=== PATIENT | male | born 1940 | race Caucasian/White ===

== ENCOUNTER 2020-02-16 08:30 | Emergency (ER) | payer OTHER, SELFPAY ==
--- NOTE | ~2020-02-16 | XR_ITS ---
EXAMINATION: XR ankle LT min 3V EXAM DATE: 02/16/2020 08:54 INDICATION: Initial encounter following injury, with pain of the left ankle. TECHNIQUE: Left ankle frontal, lateral and oblique projections obtained and reviewed. There is no pr ior study for comparison. FINDINGS: There is acute closed posttraumatic oblique fracture through the left radial distal metaphy sis extending into the superolateral aspect of the mortise, however the mortise relationship does debora ear maintained. Recommend orthopedic consult. There is overlying soft tissue swelling. Moderate size inferior calcaneal spur. IMPRESSION: Left distal fibular metaphyseal acute oblique fracture into mortise; orthopedic consult. Reviewed, dictated and finalized at location A. ING DIRECTOR IMPRESSION: Left distal fibular metaphyseal acute oblique fracture into mortis e; orthopedic consult.
[2020-02-16 08:38] VITALS: BP 156/82; PULSE 71; RESP 18; TEMP 36.3; O2SAT 100
--- NOTE | 2020-02-16 09:18 | ED.LOWEXIN ---
HPI - Extremity Injury (Lower) General Chief Complaint: Extremity Injury, Lower Stated Complaint: sprain ankle Time Seen by Provider: 02/16/20 09:07 Source: patient and old records reviewed Mode of arrival: ambulatory Limitations: no limitations History of Present Illness HPI Narrative: Patient presents today complaining of a left ankle injury. He rolled it yesterday on amount of frozen dirt. She is complaining of pain to the lateral ankle. Denies numbness or tingling in the leg or foot. He has been ambulatory since the injury. Currently rates his pain 2/10 and has been applying ice and taking Tylenol with some relief. MD complaint: ankle injury Related Data Home Medications Medication Instructions Recorded Confirmed multivitamin 1 tablet PO DAILY 09/18/19 02/16/20 Allergies Allergy/AdvReac Type Severity Reaction Status Date / Time shellfish derived Allergy Unknown Skin Verified 02/16/20 08:36 Reaction SHELL FISH Allergy Unknown HIVES Uncoded 02/16/20 08:36 Review of Systems Review of Systems: Narrative: CONSTITUTIONAL: Denies body aches, fever, chills, or sweats. EYES: Denies visual changes, redness, or discharge. ENT: Denies rhinorrhea, congestion, sore throat, or otalgia. CARDIOVASCULAR: Denies chest pain, palpitations, or edema. RESPIRATORY: Denies cough or dyspnea. GASTROINTESTINAL: Denies abdominal pain, nausea, vomiting, or diarrhea. GENITOURINARY: Denies dysuria or hematuria. SKIN: Denies rash, itching, or wounds. MUSCULOSKELETAL: Denies back pain, or myalgia. + Left ankle injury NEUROLOGIC: Denies headache, numbness, tingling, or weakness. PSYCH: Denies depression or anxiety. [facility] Past Medical History Medical History BPH associated with nocturia Combined hyperlipidemia History of elevated PSA Family History Family History Mother Family history of cardiovascular disease, Onset Age: 80 Cerebrovascular accident, Onset Age: 80 Social History Social History Smoking status: Never smoker Second hand tobacco smoke exposure: No Alcohol intake: current Comments At time of signature, I have reviewed and agree with nursing past medical, surgical, social and family history unless otherwise noted. Please see nursing chart for further information. There is no relevant family history pertinent to the presenting complaint Exam Narrative: Exam Narrative: GENERAL: Well-appearing, well-nourished, and in no acute distress. HEAD: Normocephalic, atraumatic. EYES: EOMI. No redness or drainage. Conjunctivae normal. ENT: Mucous membranes pink and moist. NECK: Normal AROM. CHEST: No respiratory distress. EXTREMITIES: Left ankle: No bony tenderness to posterior or medial ankle. Bony tenderness to the lateral malleolus. No bony tenderness to the foot. Mild to moderate edema to the lateral ankle. Distal sensation intact. Capillary refill normal. Pedal pulse strong. Full range of motion of ankle and all toes. Some increased pain with range of motion of the ankle. SKIN: Warm, dry, no rash. Capillary refill normal. Normal skin turgor. NEURO: No focal deficits. Alert and oriented x3. Gait steady. PSYCH: Normal affect. No signs of depression or anxiety. Course Vital Signs Vital signs: Vital Signs Temperature 97.3 F L 02/16/20 08:38 Pulse Rate 71 02/16/20 08:38 Respiratory Rate 18 02/16/20 08:38 Blood Pressure 156/82 H 02/16/20 08:38 Pulse Oximetry 100 02/16/20 08:38 Temperature 97.3 F L 02/16/20 08:38 Pulse Rate 71 02/16/20 08:38 Respiratory Rate 18 02/16/20 08:38 Blood Pressure 156/82 H 02/16/20 08:38 Pulse Oximetry 100 02/16/20 08:38 Reviewed. Pt has been instructed to follow up with his PCP regarding his elevated blood pressure today. Procedures Orthopedic Splinting/Ca
== END 2020-02-16 10:01 | disposition home or self-care (01) ==
PROVIDERS: Emergency Provider Nurse Practitioner; PCP Family Medicine
DX: S82.832A Other fracture of upper and lower end of left fibula, initial encounter for closed fracture (principal); X50.9XXA Other and unspecified overexertion or strenuous movements or postures, initial encounter; E78.2 Mixed hyperlipidemia
CPT/HCPCS: 29515; 73610; 99214; G0463

== ENCOUNTER 2020-09-23 14:32 | Outpatient (CLI) | payer OTHER, SELFPAY ==
--- NOTE | ~2020-09-23 | US_ITS ---
EXAMINATION: US soft tissue head and neck DATE: 09/23/2020 14:59 INDICATION: Right neck lump. TECHNIQUE: Multiple grayscale and Doppler ultrasound images of the neck were obtained. COMPARISON: None FINDINGS: There is a 17 mm calcified mass in the right submandibular gland. IMPRESSION: 1. 17 mm calcified mass in the right submandibular gland, likely a sialolith. Consider neck CT with c ontrast. Reviewed, dictated and finalized at location A. IMPRESSION: 1. 17 mm calcified mass in the right submandibular gland, likely a sialolith. C onsider neck CT with contrast.
== END 2020-09-23 14:33 | disposition home or self-care (01) ==
PROVIDERS: PCP Family Medicine; Visit Provider Nurse Practitioner
DX: R22.1 Localized swelling, mass and lump, neck (principal)
CPT/HCPCS: 76536

== ENCOUNTER 2021-03-18 11:28 | Emergency (ER) | payer OTHER, SELFPAY ==
--- NOTE | 2021-03-18 11:34 | ED.WOUNDLAC ---
HPI - Wound/Laceration General Chief Complaint: Skin/Abscess/Foreign Body Stated Complaint: Laceration on head Time Seen by Provider: 03/18/21 11:35 Source: patient, RN notes reviewed and old records reviewed Mode of arrival: ambulatory Limitations: no limitations History of Present Illness HPI narrative: 80-year-old male presents to the [facility] with complaints of a laceration, bleeding controlled to the posterior scalp. Patient states he was walking on a trail when he slipped on ice and fell hitting his head. Denies loss of consciousness. No blurry vision change in vision. Denies any chest pain. Denies headaches. Denies vomiting. Denies being on blood thinners Last Tdap current medical record was August 2015 Place: outdoors Related Data Home Medications Medication Instructions Recorded Confirmed multivitamin 1 tablet PO DAILY 09/18/19 09/28/20 Allergies Allergy/AdvReac Type Severity Reaction Status Date / Time shellfish derived Allergy Unknown Skin Verified 09/28/20 11:02 Reaction SHELL FISH Allergy Unknown HIVES Uncoded 09/28/20 11:02 Review of Systems Review of Systems: All systems reviewed & are unremarkable except as noted in HPI and below Constitutional: Constitutional: Reports no additional constitutional complaints, Denies chills and Denies fever(s) Eyes: Eyes: Reports no additional eye complaints ENT: Reports system reviewed and no additional complaints, except as documented Cardiovascular: Cardiovascular: Reports no additional cardiovascular complaints, Denies chest pain and Denies dyspnea Respiratory: Respiratory: Reports no additional respiratory complaints, Denies cough and Denies dyspnea Gastrointestinal: Gastrointestinal: Reports no additional gastrointestinal complaints, Denies abdominal pain, Denies nausea and Denies vomiting Musculoskeletal: Musculoskeletal: Reports no additional musculoskeletal complaints Integumentary/Breasts: Skin/Breast: Reports as per HPI Comments: cut to back of head Neurologic: Reports system reviewed and no additional complaints, except as documented, Denies confusion, Denies vertigo, Denies dizziness, Denies syncope, Denies headache(s), Denies focal weakness, Denies numbness and Denies weakness Psychiatric: Psychiatric: Reports no additional psychiatric complaints Allergic/Immunologic: Allergic/Immunologic: Reports no additional allergic/immunologic complaints PMFSH Past Medical History Medical History BPH associated with nocturia Closed left fibular fracture Combined hyperlipidemia History of elevated PSA Strain of muscle of right hip Family History Family History Mother Family history of cardiovascular disease, Onset Age: 80 Cerebrovascular accident, Onset Age: 80 Social History Social History Smoking status: Never smoker Second hand tobacco smoke exposure: No Alcohol intake: current Substance use: never Substance use type: does not use Comments At the time of my signature, I reviewed and agree with the nursing past medical, surgical, social, and family history. There is no relevant family history pertinent to the patient complaint. Exam Const: General: healthy appearing, no acute distress and alert Nutritional Appearance: well nourished Orientation/consciousness: patient oriented x3 Limitations: no limitations HENMT: Head: normal to inspection, abrasion right occipital, hematoma right occipital, no lacerations, no occipital foramen tenderness, no raccoon eyes, no scalp lesions and no scalp tenderness Head images: 1. 1 cm diameter abrasion, bleeding controlled Ears: external ears normal General nose exam: Normal external nose present and Normal nares present Face and sinus: normal facial exam Mouth: Yes Normal oral and palatal mucosa present Teeth and gingiva: den
[2021-03-18 11:41] VITALS: BP 164/105; PULSE 85; RESP 18; TEMP 36.3; O2SAT 97
--- NOTE | 2021-03-18 11:50 | PC.NURSE ---
wound cleansed. small break in skin noted surrounded by abrasion/swelling. no bleeding
[2021-03-18] MEDS: TETANUS,DIPHTHERIA,AC PERTUSSIS ADULT (0.5 ML) BOOSTRIX IM (12:08)
== END 2021-03-18 12:23 | disposition home or self-care (01) ==
PROVIDERS: Emergency Provider Nurse Practitioner; PCP Family Medicine
DX: S00.01XA Abrasion of scalp, initial encounter (principal); W00.0XXA Fall on same level due to ice and snow, initial encounter; Z23 Encounter for immunization
CPT/HCPCS: 90471; 90715; 99212; G0463

== ENCOUNTER 2021-10-24 11:14 | Emergency (ER) | payer OTHER, SELFPAY ==
[2021-10-24 11:24] VITALS: BP 141/86; PULSE 94; RESP 18; TEMP 36.8; O2SAT 96
--- NOTE | 2021-10-24 11:25 | ED.SKABFB ---
HPI - Skin/Abscess/Foreign Bdy General Chief complaint: Skin/Abscess/Foreign Body Stated complaint: Lump on Abdomen Time Seen by Provider: 10/24/21 11:25 Source: patient, RN notes reviewed and old records reviewed Mode of arrival: ambulatory Limitations: no limitations History of Present Illness HPI narrative: 80-year-old male presents to the [facility] with his with complaints of a lump approximately 2 cm above umbilicus that he noticed this morning. No redness noted. Unable to visualize anything externally. On palpation able to palpate a small firm area, approximately 2 cm in diameter. Related Data Home Medications Medication Instructions Recorded Confirmed multivitamin 1 tablet PO DAILY 09/18/19 10/24/21 Allergies Allergy/AdvReac Type Severity Reaction Status Date / Time shellfish derived Allergy Unknown Skin Verified 10/24/21 11:18 Reaction SHELL FISH Allergy Unknown HIVES Uncoded 10/24/21 11:18 Review of Systems Review of Systems: All systems reviewed & are unremarkable except as noted in HPI and below Constitutional: Constitutional: Reports no additional constitutional complaints, Denies chills and Denies fever(s) Eyes: Eyes: Reports no additional eye complaints ENT: Reports system reviewed and no additional complaints, except as documented Cardiovascular: Cardiovascular: Reports no additional cardiovascular complaints Respiratory: Respiratory: Reports no additional respiratory complaints Gastrointestinal: Gastrointestinal: Reports as per HPI Comments: Lump 2 cm above umbilicus internal. Musculoskeletal: Musculoskeletal: Reports no additional musculoskeletal complaints Integumentary/Breasts: Skin/Breast: Reports system reviewed and no additional complaints, except as docu Neurologic: Reports system reviewed and no additional complaints, except as documented Psychiatric: Psychiatric: Reports no additional psychiatric complaints Allergic/Immunologic: Allergic/Immunologic: Reports no additional allergic/immunologic complaints [facility] Past Medical History Medical History BPH associated with nocturia Closed left fibular fracture Combined hyperlipidemia History of elevated PSA Strain of muscle of right hip Family History Family History Mother Family history of cardiovascular disease, Onset Age: 80 Cerebrovascular accident, Onset Age: 80 Social History Social History Social History: Caffeine- 2 cups coffee daily Smoking status: Never smoker Second hand tobacco smoke exposure: No Alcohol intake: current Drinks per week: 2 Alcohol use details: wine Substance use: never Substance use type: does not use Comments At the time of my signature, I reviewed and agree with the nursing past medical, surgical, social, and family history. There is no relevant family history pertinent to the patient complaint. Exam Const: General: healthy appearing, no acute distress and alert Nutritional Appearance: well nourished Orientation/consciousness: patient oriented x3 Limitations: no limitations HENMT: Head: normal to inspection Ears: external ears normal Eyes: General: appearance normal, both eyes and all related structures Pupils: Equal, round and reactive pupils present Neck: Neck: normal visual inspection, no lymphadenopathy and no meningeal signs Chest: Chest palpation & inspection: normal inspection of the chest Resp: Effort & Inspection: normal respiratory effort and no use of accessory muscles Auscultation: clear to auscultation bilaterally, no crackles, no rales, no rhonchi and no wheezes Cardio: Rate: regular rate Rhythm: regular rhythm GI: GI Palp: Yes Soft to palpation and No Tenderness to palpation present (GI) Other: 2 cm above umbilicus, firm area noted. Patient is nontender. No fl
== END 2021-10-24 11:40 | disposition home or self-care (01) ==
PROVIDERS: Emergency Provider Nurse Practitioner; PCP Family Medicine
DX: R19.05 Periumbilic swelling, mass or lump (principal)
CPT/HCPCS: 99211; G0463

== ENCOUNTER 2021-11-05 07:45 | Outpatient (CLI) | payer OTHER, SELFPAY ==
--- NOTE | ~2021-11-05 | US_ITS ---
EXAMINATION: US soft tissue abdomen DATE: 11/05/2021 08:58 INDICATION: Intra-abdominal and pelvic swelling, mass, and lump. TECHNIQUE: Multiple grayscale and Doppler ultrasound images of the abdomen were obtained. COMPARISON: None FINDINGS: In the periumbilical abdominal wall, there is a ventral hernia containing fat. IMPRESSION: 1. Ventral hernia containing fat. Reviewed, dictated and finalized at location A.
== END 2021-11-05 07:46 | disposition home or self-care (01) ==
PROVIDERS: PCP Family Medicine; Visit Provider Nurse Practitioner Family
DX: R19.00 Intra-abdominal and pelvic swelling, mass and lump, unspecified site (principal); K43.9 Ventral hernia without obstruction or gangrene
CPT/HCPCS: 76705

== ENCOUNTER 2022-01-13 17:52 | Emergency (ER) | payer OTHER, SELFPAY ==
--- NOTE | ~2022-01-13 | XR_ITS ---
EXAMINATION: XR hip RT 2V w AP pelvis DATE: 01/13/2022 19:22 INDICATION: Right posterior hip pain post fall TECHNIQUE: Anteroposterior view of the pelvis and anteroposterior and frog-leg lateral views of the r ight hip were obtained. COMPARISON: None. FINDINGS: Alignment is normal. No fracture. Mild bilateral hip and sacroiliac osteoarthritis. Moderate lower dar mbar spondylosis. Soft tissues are unremarkable. IMPRESSION: 1. Mild bilateral hip and sacroiliac osteoarthritis. No acute osseous abnormality. Reviewed, dictated and finalized at location A. 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 Mild bilateral hip and sacroiliac osteoarthritis. No acute osseous abnormali ty.
--- NOTE | ~2022-01-13 | CT_ITS ---
EXAMINATION: CT brain wo con DATE: 01/13/2022 19:16 INDICATION: Injury TECHNIQUE: Computed tomography (CT) of the head was performed without intravenous contrast. Sagittal and coronal reconstructions were performed. The mA was adjusted according to patient size. Iterative reconstruction technique was employed. The dose-length product was 605.33 mGy-cm. COMPARISON: None FINDINGS: No fracture. No acute intracranial hemorrhage, acute infarction or abnormal extra axial fluid collect ion. Mild age-appropriate diffuse volume loss. Ventricles are normal and symmetric. No mass/mass effe ct. Changes of bilateral intraocular lens replacement. The orbits, paranasal sinuses and mastoid air cells are normal. IMPRESSION: 1. No fracture or acute intracranial process. Reviewed, dictated and finalized at location A. 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
[2022-01-13 17:55] VITALS: BP 167/88; PULSE 87; RESP 16; TEMP 36.9; O2SAT 97
[2022-01-13 18:43] VITALS: O2SAT 97
[2022-01-13 18:45] VITALS: O2SAT 97
[2022-01-13 18:46] VITALS: BP 150/80; O2SAT 97
--- NOTE | 2022-01-13 19:04 | ED.FALL ---
HPI - Fall General Chief Complaint: Fall Stated Complaint: FALL/LOSS OF TIME Time Seen by Provider: 01/13/22 18:29 History of Present Illness HPI Narrative: Patient is a 81-year-old male who presents to the ER after falling down 7 steps. He is unsure if he struck his head but checked on him after he fell and he could not remember carving the turkey for Thanksgiving or other activities during the day. Shortly later he was able to regain his memory. He has no headache or change in vision at this time. He is not on any blood thinners. He has mild pain in his right hip but has been able to ambulate. Related Data Home Medications Medication Instructions Recorded Confirmed multivitamin 1 tablet PO DAILY 09/18/19 11/02/21 Allergies Allergy/AdvReac Type Severity Reaction Status Date / Time shellfish derived Allergy Unknown Skin Verified 11/02/21 09:04 Reaction SHELL FISH Allergy Unknown HIVES Uncoded 11/02/21 09:04 Review of Systems Review of Systems: All systems reviewed & are unremarkable except as noted in HPI and below Constitutional: Constitutional: Denies chills, Denies fatigue and Denies fever(s) ENT: Denies nasal congestion and Denies sore throat Cardiovascular: Cardiovascular: Denies chest pain, Denies rapid heart rate and Denies radiating jaw, neck or arm pain Respiratory: Respiratory: Denies cough and Denies dyspnea Musculoskeletal: Musculoskeletal: Denies back pain, Reports arthralgias and Denies joint swelling Integumentary/Breasts: Comments: Abrasions to the back. Neurologic: Reports syncope, Denies headache(s), Denies focal weakness and Denies numbness PMF Past Medical History Medical History (Updated 01/13/22 @ 19:46 by Yusef Gerber MD) BPH associated with nocturia Closed left fibular fracture Combined hyperlipidemia History of elevated PSA Strain of muscle of right hip Ventral hernia (~09/2021) fat containing Family History Family History Mother Family history of cardiovascular disease, Onset Age: 80 Cerebrovascular accident, Onset Age: 80 Social History Social History (Updated 11/02/21 @ 09:06 by Suri Hampton MA) Social History: Caffeine- 2 cups coffee daily Smoking status: Never smoker Second hand tobacco smoke exposure: No Alcohol intake: current Drinks per week: 2 Alcohol use details: wine Substance use: never Substance use type: does not use Gender identity (if verbalized by the patient): Male Sexual Orientation (if Verbalized by the Patient): Straight or Heterosexual Agree to blood products: Yes Exam Narrative: GENERAL: Well-appearing, well-nourished, and in no acute distress. HEAD: Normocephalic, atraumatic. EYES: PERRL and EOMI. ENT: Mucous membranes moist. NECK: Supple. No midline tenderness of cervical spine with normal range of motion. CHEST: Clear to auscultation. No respiratory distress. HEART: Regular rate and rhythm. Normal peripheral pulses. ABDOMEN: Soft, nontender, nondistended. Back: No midline tenderness of T/L-spine. No reproducible paraspinal muscular tenderness. There is some abrasions to the back bilaterally over lower thoracic wall. EXTREMITIES: Normal range of motion. No edema. SKIN: Warm, dry, no rash. NEURO: Alert and oriented x3. No focal deficits. Course Course Emergency Course: Patient informed of results. Discharge home. Vital Signs Vital signs: Vital Signs Temperature 98.5 F 01/13/22 17:55 Pulse Rate 87 01/13/22 17:55 Respiratory Rate 16 01/13/22 17:55 Blood Pressure 167/88 H 01/13/22 17:55 Pulse Oximetry 97 01/13/22 17:55 Oxygen Delivery Room Air 01/13/22 17:55 Temperature 98.5 F 01/13/22 17:55 Pulse Rate 87 01/13/22 17:55 Respiratory Rate 16 01/13/22 17:55 Blood Pressure 167/88 H 01/13/22 17:55 Pulse Oximetry 97 01/13/22 17:55 Oxygen Delivery Room Air 01/13/22 17:55
[2022-01-13 19:22] VITALS: O2SAT 99
[2022-01-13 19:30] VITALS: O2SAT 97
== END 2022-01-13 20:01 | disposition home or self-care (01) ==
PROVIDERS: Emergency Provider Emergency Medicine; PCP Family Medicine
DX: S06.0XAA Concussion with loss of consciousness status unknown, initial encounter (principal); N40.1 Benign prostatic hyperplasia with lower urinary tract symptoms; R35.1 Nocturia; E78.2 Mixed hyperlipidemia; M16.0 Bilateral primary osteoarthritis of hip; M46.1 Sacroiliitis, not elsewhere classified; W10.9XXA Fall (on) (from) unspecified stairs and steps, initial encounter
CPT/HCPCS: 70450; 73502; 99284

== ENCOUNTER 2022-08-16 12:57 | Emergency (ER) | payer OTHER, SELFPAY ==
[2022-08-16 13:06] VITALS: BP 159/79; PULSE 58; RESP 16; TEMP 36; O2SAT 99
[2022-08-16 13:08] VITALS: BP 159/79; PULSE 58; RESP 16; TEMP 36; O2SAT 99
--- NOTE | 2022-08-16 13:27 | ED.EAR ---
HPI - Ear Problem General Chief complaint: Ear Stated complaint: Left Ear Irritation Time Seen by Provider: 08/16/22 13:15 Source: patient, family, RN notes reviewed and old records reviewed Mode of arrival: ambulatory Limitations: no limitations History of Present Illness HPI Narrative: 81 year old male accompanied by presents to express care with complaints of decreased hearing to his left ear, feelings of nausea and some dizziness with changes of position starting this morning. Patient denies any vomiting, diarrhea or any known fevers. Patient reports no discharge from his ears reports irritation to left ear especially with decrease in his hearing to his left ear. Patient does reports history of sinus problems and some seasonal allergies, denies any cough or any sinus pressure at this time. MD Complaint: decreased hearing and other (ear irritation) Location: left ear Discharge from ear: Reports no Associated symptoms ear: other (loss of hearing, feeling dizzy,nausea) Treatment prior to arrival: none Related Data Home Medications Medication Instructions Recorded Confirmed multivitamin 1 tablet PO DAILY 09/18/19 05/16/22 Allergies Allergy/AdvReac Type Severity Reaction Status Date / Time shellfish derived Allergy Unknown Skin Verified 08/16/22 13:08 Reaction SHELL FISH Allergy Unknown HIVES Uncoded 08/16/22 13:08 Review of Systems Review of Systems: CONSTITUTIONAL: Denies fever, chills, or sweats. EYES: Denies visual changes, redness, or discharge.with decreased hearing verbalized. ENT: Denies rhinorrhea, congestion, sore throat,reports left ear irritation and decreased hearing. CARDIOVASCULAR: Denies chest pain, palpitations, or edema. RESPIRATORY: Denies cough or dyspnea. GASTROINTESTINAL: Denies abdominal pain, reports some nausea, no vomiting, or diarrhea. GENITOURINARY: Denies dysuria or hematuria. SKIN: Denies rash or itching. MUSCULOSKELETAL: Denies back pain, joint pain, or myalgia. NEUROLOGIC: Denies headache, numbness, or weakness, reports some dizziness with position changes PSYCHIATRIC: Denies anxiety or depression. All systems reviewed & are unremarkable except as noted in HPI and below PMFSH Past Medical History Medical History BPH associated with nocturia Closed left fibular fracture Combined hyperlipidemia History of elevated PSA Strain of muscle of right hip Ventral hernia (~09/2021) fat containing Family History Family History Mother Family history of cardiovascular disease, Onset Age: 80 Cerebrovascular accident, Onset Age: 80 Social History Social History Social History: Caffeine- 2 cups coffee daily Smoking status: Never smoker Second hand tobacco smoke exposure: No Alcohol intake: current Drinks per week: 2 Alcohol use details: wine Substance use: never Substance use type: does not use Lack of Transportation: No Lack of Food: Never True Current Housing: I Have Housing Concerned About Future Housing: No Difficulty Paying Gas/Electric Bills: No Difficulty Paying for Meds: No Currently Unemployed: No Education: Master's Degree or Higher Difficulty w/ Childcare or Family Care: No Living arrangements: with family Occupation/Education: retired Gender identity (if verbalized by the patient): Male Sexual Orientation (if Verbalized by the Patient): Straight or Heterosexual Agree to blood products: Yes Comments At time of signature, agree with nursing past medical, surgical, social and family history. There is no relevant family history pertinent to the presenting complaint Exam Narrative: GENERAL: Well-appearing, well-nourished, and in no acute distress. HEAD: Normocephalic, atraumatic. EYES: PERRLA and EOMI. ENT: Nares clear,clear rhinorrhea no e
== END 2022-08-16 13:47 | disposition home or self-care (01) ==
PROVIDERS: Emergency Provider Registered Nurse; PCP Family Medicine
DX: H61.23 Impacted cerumen, bilateral (principal); H60.503 Unspecified acute noninfective otitis externa, bilateral; E78.2 Mixed hyperlipidemia
CPT/HCPCS: 69209; 99212; A9270; G0463

== ENCOUNTER 2023-08-09 12:51 | Emergency (ER) | payer OTHER, SELFPAY ==
[2023-08-09 13:05] VITALS: BP 142/70; PULSE 73; RESP 16; TEMP 36.6; O2SAT 99
--- NOTE | 2023-08-09 13:06 | ED.DENTAL ---
HPI - Dental/Oral General Chief complaint: Dental/Oral Stated complaint: saliva gland issue right side Time Seen by Provider: 08/09/23 13:06 Source: patient Mode of arrival: ambulatory Limitations: no limitations History of Present Illness HPI Narrative: 82-year-old male presents stating he has had enlarged summary gland to his right neck for 4 years. States he was seen ENT in the past and was told it was a crystallized salivary gland. Over the past week has had increasing pain and enlargement. Had doctor's appointment today but was canceled. Patient thinks he needs an antibiotic. All systems reviewed and negative except as noted above. Related Data Home Medications Medication Instructions Recorded Confirmed multivitamin 1 tablet PO DAILY 09/18/19 08/09/23 triamcinolone acetonide 0.1 % 1 applic topical DAILY 09/21/22 08/09/23 topical cream hydroxyzine HCl 25 mg tablet 25 mg PO DAILY 08/09/23 08/09/23 montelukast 10 mg tablet 10 mg PO HS 08/09/23 08/09/23 Allergies Allergy/AdvReac Type Severity Reaction Status Date / Time shellfish derived Allergy Unknown Skin Verified 08/09/23 13:08 Reaction SHELL FISH Allergy Unknown HIVES Uncoded 08/09/23 13:08 Review of Systems Review of Systems: CONSTITUTIONAL: Denies fever, chills, or sweats. EYES: Denies visual changes, redness, or discharge. ENT: Denies rhinorrhea, congestion, sore throat, or otalgia. reports enlarged and painful salivary gland. CARDIOVASCULAR: Denies chest pain, palpitations, or edema. RESPIRATORY: Denies cough or dyspnea. GASTROINTESTINAL: Denies abdominal pain, nausea, vomiting, or diarrhea. GENITOURINARY: Denies dysuria or hematuria. SKIN: Denies rash or itching. MUSCULOSKELETAL: Denies back pain, joint pain, or myalgia. NEUROLOGIC: Denies headache, numbness, or weakness. PSYCHIATRIC: Denies anxiety or depression. All other systems reviewed are negative, except as documented in HPI. [facility] Past Medical History Medical History BPH associated with nocturia Closed left fibular fracture Combined hyperlipidemia History of elevated PSA Strain of muscle of right hip Ventral hernia (~09/2021) fat containing Family History Family History Mother Family history of cardiovascular disease, Onset Age: 80 Cerebrovascular accident, Onset Age: 82 Social History Social History Social History: Caffeine- 2 cups coffee daily Smoking status: Never smoker Second hand tobacco smoke exposure: No Alcohol intake: current Drinks per week: 2 Alcohol use details: wine Substance use: never Substance use type: does not use Living arrangements: with family Occupation/Education: retired Gender identity (if verbalized by the patient): Male Sexual Orientation (if Verbalized by the Patient): Straight or Heterosexual Agree to blood products: Yes Comments At time of signature, agree with nursing past medical, surgical, social and family history. There is no relevant family history pertinent to the presenting complaint. Exam Narrative: GENERAL: This is a well-nourished, well-developed patient, in no apparent distress. HEAD: normocephalic, atraumatic. EYES: PERRL. Sclera clear/white. Vision is grossly intact. EARS: External ears normal NOSE: External nose normal NECK: R sided enlarged submandibular lymph node, salivary gland CARDIOVASCULAR: Regular rate and rhythm without murmurs, gallops, or rubs. RESPIRATORY: Clear to auscultation. Breath sounds equal bilaterally. No wheezes, rales, or rhonchi. SKIN: warm, Dry, intact with no suspicious lesions or rash, good texture and turgor. NEURO: awake, alert, and oriented to person, place and time. There were no obvious focal neurologic abnormalities. EXTREMITIES: No joint tenderness, effusion, or edema note
[2023-08-09 13:09] VITALS: BP 142/70; PULSE 73; RESP 16; TEMP 36.6; O2SAT 99
== END 2023-08-09 13:25 | disposition home or self-care (01) ==
PROVIDERS: Emergency Provider Nurse Practitioner Family; PCP Family Medicine
DX: R59.9 Enlarged lymph nodes, unspecified (principal); N40.0 Benign prostatic hyperplasia without lower urinary tract symptoms; E78.2 Mixed hyperlipidemia
CPT/HCPCS: 99213; G0463

== ENCOUNTER 2023-08-14 06:35 | Outpatient (CLI) | payer OTHER, SELFPAY ==
--- NOTE | ~2023-08-14 | CT_ITS ---
EXAMINATION: CT soft tissue neck w con DATE: 08/14/2023 07:21 INDICATION: Enlarged lymph nodes, unspecified. TECHNIQUE: Computed tomography (CT) of the neck was performed with 75 mL Omnipaque-350 intravenous co ntrast. Automated exposure control and iterative reconstruction technique were employed. The dose-ned gth product was 515.90 mGy-cm. COMPARISON: Ultrasound 09/23/2020 FINDINGS: There are likely changes of ocular lens replacement surgeries. There are sialoliths in righ t submandibular gland measuring up to 14 mm. There are no pathologically enlarged lymph nodes. There is severe spondylosis at C5-C6. IMPRESSION: 1. No lymphadenopathy. 2. Sialoliths in right submandibular gland. Reviewed, dictated and finalized at location A.
[2023-08-15 10:37] LABS: Estimated Glomerular Filt Rate > 60
== END 2023-08-14 06:36 | disposition home or self-care (01) ==
PROVIDERS: PCP Family Medicine; Visit Provider Nurse Practitioner
DX: K11.5 Sialolithiasis (principal); R59.9 Enlarged lymph nodes, unspecified
CPT/HCPCS: 36415; 70491; 82565; Q9967

== ENCOUNTER 2023-09-27 08:41 | Outpatient (CLI) | payer OTHER, SELFPAY ==
[2023-09-27 12:35] LABS: Basophils Percent Auto 0.5 % (0.2-1.2); Eosinophils Absolute Auto 0.1 K/mm3 (0-0.3); Eosinophils Percent Auto 1.5 % (0-4.4); Hematocrit 47.1 % (42.0-52.0); Hemoglobin 15.7 g/dL (14.0-18.0); Immature Granulocyte Absolute 0.02 K/mm3 (0.00-0.031); Immature Granulocyte Percent A 0.3 % (0-0.5); Lymphocytes Absolute Auto 1.74 K/mm3 (0.9-3.2); Mean Corpuscular HGB Conc 33.3 g/dl (32-36); Mean Corpuscular Hemoglobin 31.8 pg (26-34); Mean Corpuscular Volume 95.3 fl (80-100); Mean Platelet Volume 10.1 fl (7.4-10.4); Monocytes Absolute Auto 0.7 K/mm3 (0.1-0.6); Monocytes Percent Auto 11.7 % (2.6-8.5); Neutrophils Absolute Auto 3.4 K/mm3 (1.3-6.7); Nucleated Red Blood Cells Perc 0.3 % (0.0-0.2); Platelet Count Result 266 k/mm3 (150-375); Red Blood Count 4.94 M/mm3 (4.6-6.20); Red Cell Distribution Width 12.6 % (11.5-14.5)
[2023-09-27 13:20] LABS: Alanine Aminotransferase 23 U/L (6-50); Albumin Level 4.4 g/dL (3.5-5.1); Alkaline Phosphatase 79 U/L (38-126); Anion Gap 10 mmol/L (4-12); Aspartate Amino Transferase 41 U/L (17-59); Bilirubin,Total 1.4 mg/dL (0.2-1.3); Blood Urea Nitrogen 14 mg/dL (9-20); Calcium 9.2 mg/dL (8.4-10.2); Carbon Dioxide 28 mmol/L (22-30); Chloride 96 mmol/L (98-107); Cholesterol 177 mg/dL (0-200); Estimated Glomerular Filt Rate > 60; Glucose 103 mg/dL (65-110); HDL Direct 45 mg/dL; Potassium 4.3 mmol/L (3.4-5.0); Sodium 134 mmol/L (137-145); Triglycerides 119 mg/dL (<150)
[2023-09-27 13:32] LABS: LDL Cholesterol Direct 106 mg/dL
[2023-09-27 15:13] LABS: Hemoglobin A1C 5.4 % (<5.7)
[2023-10-02 15:27] LABS: Vitamin D 1,25 (OH)2 Total 50 pg/mL (18-72); Vitamin D2 1,25 (OH)2 <8 pg/mL; Vitamin D3 1,25 (OH)2 50 pg/mL
== END 2023-09-27 08:42 | disposition home or self-care (01) ==
PROVIDERS: PCP Family Medicine; Visit Provider Nurse Practitioner Family
DX: E53.8 Deficiency of other specified B group vitamins (principal); Z13.29 Encounter for screening for other suspected endocrine disorder; R73.03 Prediabetes; E78.5 Hyperlipidemia, unspecified; K11.5 Sialolithiasis; E78.2 Mixed hyperlipidemia; E55.9 Vitamin D deficiency, unspecified
CPT/HCPCS: 36415; 80053; 80061; 82607; 82652; 83036; 84443; 85025

== ENCOUNTER 2023-12-04 14:21 | Outpatient (CLI) | payer OTHER, SELFPAY ==
--- NOTE | ~2023-12-04 | XR_ITS ---
EXAMINATION: XR hip LT 2V w AP pelvis DATE: 12/04/2023 15:13 INDICATION: Left hip pain. TECHNIQUE: An anteroposterior view of the pelvis and 2 views of left hip were obtained. COMPARISON: Pelvis radiograph 01/13/2022 FINDINGS: There is lumbar levocurvature and moderate spondylosis. No fracture. There is moderate oste oarthritis of the hips. IMPRESSION: 1. Moderate osteoarthritis of the hips. Reviewed, dictated and finalized at location A.
== END 2023-12-04 14:22 | disposition home or self-care (01) ==
LOC: GOSHIMG 14:22
PROVIDERS: PCP Family Medicine; Visit Provider Family Medicine
DX: M16.12 Unilateral primary osteoarthritis, left hip (principal)
CPT/HCPCS: 73502

== ENCOUNTER 2024-04-09 09:13 | Outpatient (CLI) | payer OTHER, SELFPAY ==
--- OUTSIDE RECORDS SUMMARY | 2024-04-09 09:19 | XMS_ITS | Continuity of Care Document ---
Author Organization [facility] Address [address] [place] [address] Phone Care Team Providers Care Rhinologist Name Role Phone Morgan Moreno Unavailable Unavailable Procedures Procedure Date Post-op Follow-up Visit Post-op Follow-up Visit Remove Cataract, Insert Lens Eye Exam Established Pt Echo Exam Of Eye Eye Exam, New Patient Refraction Advance Directives Directive Yes / No Effective Date File Name No Information Encounters Encounter Description Practice Location Reason(s) For Visit Diagnoses Date Provider Providers Copied on Encounter [facility], [address] [place] [address] [address], [place], [place], [id number], [place] tel:[phone] [facility] No Information 9-200 9 Krishnasamy Morgan. [address] [facility] [address], [address], [place]. tel:[phone] [place] [facility], [address], [place], [place], [address], [place] tel:[phone] [facility] No Information 2-200 9 Krishnasamy Morgan. [address] [facility] [address], [place], [address], [place]. tel:[phone] [place] [facility], [address], [place], [place], [id number], [place] tel:[phone] [facility] No Information June-2 1-200 9 Krishnasamy Morgan. [address] [place] [address] [address] [place], [place], [facility], [place]. tel:[phone] [facility], [address] [facility] [address], [place], [place], [id number], tel:[phone] [facility] No Information June-0 5-200 9 Krishnasamy Morgan. [address] [place] [address] [address] [place], [place], [facility], [place]. tel:[phone] Referring Provider: Morgan cagle, [address] [place] [address], [facility]. tel:[phone] [place] [facility], [address] [facility] [address], [place], [place], [id number], tel:[phone] [facility] No Information 4-200 9 Krishnasamy Morgan. [address] [place] [address], [facility], [place]. tel:[phone] Referring Provider: Fabrice Gabriel, [address] [place], [place] [address], [place], [place], [facility]. tel:[phone] Family History Family Member Type Diagnosis Age At Onset No Information Payers Payer name Insurance type Covered green party ID Authoriza tion(s) No Information Social History Type Description Quantity Date Captured Comments Sex Male Smoking Status No Information Chief Complaint And Reason For Visit No Information Reason For Referral Reason For Referral No Information History Of Present Illness Encounter Date Complaint History Of Prese nt Illness No Information Functional Status Date Functional Assessmen t No Information Instructions Date Instruction Additional Infor mation No Information Assessments Type Assessment Date No Information Patient Care Teams Name Effective Dates (start - stop) Status Members No Information
--- OUTSIDE RECORDS SUMMARY | 2024-04-09 09:19 | XMS_ITS | Clinical Summary ---
Author Organization [facility] Address [address] [place] [address] Phone Care Team Providers Care Beading Sawyer Name Role Phone Kelly Grant MD Primary Care Provider Allergies Active Allergy Reactions Criticality Noted Date Comments Shellfish Containing Products Hives Medium 2024 Medications simvastatin (ZOCOR) 20 mg tablet Active triamcinolone (KENALOG) 0.1 % cream APPLY TO AFFECTED AREAS ON ARMS AND TORSO TWICE DAILY NEEDED FOR NO MORE THAN 3 WEEKS IN A ROW 02/27/2024 Active Active Problems No known active problems Encounters Date Type Department Care Team Description 03/15/2024 11:50 AM INFORMATION TECHNOLOGY AUDITOR - 03/15/2024 11:59 PM INFORMATION TECHNOLOGY AUDITOR Hospital Encounter [facility] ([facility]) [address] [place] [id number] Discharge Disposition: Discharge to home or self care 03/15/2024 Telephone [facility] ([facility] - [facility] [address] [facility] [address]th [place] [address] [place] [address] Aurelia Pond CMA 03/15/2024 Telephone [facility] - [facility] [address] [facility] [address]th [place] [address] [place] [address] Aurelia Pond CMA 03/14/2024 1:40 PM INFORMATION TECHNOLOGY AUDITOR Office Visit [facility] [address]th [place] [address] [place] [address] Hui Fletcher MD Submandibular sialolithiasis (Primary Dx) from Last 3 Months Medical History Medical History Date Comments HL (hearing loss) 40 years ago Tinnitus 40 years ago Social History Tobacco Use Types Packs/Day Years Used Date Smoking Tobacco: Never Assessed Sex and Gender Information Value Date Recorded Sex Assigned at Not on file Legal Sex Male 7:28 AM CDT Gender Identity Not on file Sexual Orientation Not on file Obstetrics History Last Filed Vital Signs Vital Sign Reading Time Taken Comments Blood Pressure - - Pulse - - Temperature - - Respiratory Rate - - Oxygen Saturation - - Inhaled Oxygen Concentration - - Weight 88 kg (194 lb) 03/14/2024 1:26 PM INFORMATION TECHNOLOGY AUDITOR Height 180.3 cm (5' 11 ) 03/14/2024 1:26 PM INFORMATION TECHNOLOGY AUDITOR Body Mass Index 27.06 03/14/2024 1:26 PM INFORMATION TECHNOLOGY AUDITOR Plan of Treatment Health Maintenance Due Date Last Done Comments Depression Screening 1940 Fall Risk Assessment 1940 Hepatitis B Screening 1960 Well Visit 65+ 12/15/2007 Pneumococcal vaccine 65+ (2 of 2 - PCV) 02/21/2016 02/20/2015 Zoster Vaccine (2 of 2) 12/12/2018 10/17/2018 Covid-19 Vaccine (4 - season) 2023 12/10/2020, 05/08/2020, 04/16/2020 Influenza Vaccine (#1) 2023 2, 11/11/2020, 12/09/2019 DTaP/Tdap/Td Vaccine (3 - Td or Tdap) 03/18/2031, 08/29/2015 Procedures Procedure Name Priority Date/Time Associated Diagnosis Comments NEURO CT OUTSIDE REFERENCE Routine 03/15/2024 11:50 AM INFORMATION TECHNOLOGY AUDITOR Diagnosis unknown from Last 3 Months Results * Neuro CT Outside Reference (03/15/2024 11:50 AM INFORMATION TECHNOLOGY AUDITOR) Impressions RAD_PACS_[facility]J - 03/15/2024 11:50 AM INFORMATION TECHNOLOGY AUDITOR These images are for Reference purposes only and have not been reviewed by [facility]. There will be no report generated by a [facility] Radiologist. Narrative FREDDY_[facility] - 03/15/2024 11:50 AM INFORMATION TECHNOLOGY AUDITOR EXAMINATION: Images For Reference Purposes Only Hui Fletcher MD IMG CT PROCEDURES Ruth l Result RAD_PACS_[facility] from Last 3 Months Insurance [address] [place] [id number] [facility] [address] [place] [id number] Care Teams Beading Sawyer Relationship Specialty Start Date End Date Kelly Grant MD [address] [place] [address] [address] PCP - General Family Practice 02/22/24
--- OUTSIDE RECORDS SUMMARY | 2024-04-09 09:19 | XMS_ITS | Referral Summary ---
Author Organization [facility] Address [address] [place] [address] Phone Care Team Providers Care Grief Counsellor Name Role Phone Kelly Grant MD Primary Care Provider Encounters Date Type Department Care Team Description 03/15/2024 11:50 AM COUNTER CLERK [employer] - 03/15/2024 11:59 PM COUNTER CLERK [employer] Hospital Encounter [facility] ([facility]) [address] [place] [address] Discharge Disposition: Discharge to home or self care 03/15/2024 Telephone [facility] ([facility] - [facility] [address] [facility] [address]th [place] [address] [place] [id number] Aurelia Pond [facility] 03/15/2024 Telephone [facility] ([facility]) - [facility] [address] [facility] [address] [place] [address] [place] [address] Aurelia Pond [facility] 03/14/2024 1:40 PM COUNTER CLERK [employer] Office Visit [facility] ([facility]) - [facility] [address] [facility] [address]th [place] [address] [place] [phone] Hui Fletcher MD Submandibular sialolithiasis (Primary Dx) from Last 3 Months Allergies Active Allergy Reactions Criticality Noted Date Comments Shellfish Containing Products Hives Medium 2024 Medications simvastatin (ZOCOR) 20 mg tablet Active triamcinolone (KENALOG) 0.1 % cream APPLY TO AFFECTED AREAS ON ARMS AND TORSO TWICE DAILY NEEDED FOR NO MORE THAN 3 WEEKS IN A ROW 02/27/2024 Active Active Problems No known active problems Social History Tobacco Use Types Packs/Day Years Used Date Smoking Tobacco: Never Assessed Sex and Gender Information Value Date Recorded Sex Assigned at Not on file Legal Sex Male 7:28 AM CDT Gender Identity Not on file Sexual Orientation Not on file Last Filed Vital Signs Vital Sign Reading Time Taken Comments Blood Pressure - - Pulse - - Temperature - - Respiratory Rate - - Oxygen Saturation - - Inhaled Oxygen Concentration - - Weight 88 kg (194 lb) 03/14/2024 1:26 PM COUNTER CLERK [employer] Height 180.3 cm (5' 11 ) 03/14/2024 1:26 PM COUNTER CLERK [employer] Body Mass Index 27.06 03/14/2024 1:26 PM COUNTER CLERK [employer] Plan of Treatment Not on file Procedures Procedure Name Priority Date/Time Associated Diagnosis Comments NEURO CT OUTSIDE REFERENCE Routine 03/15/2024 11:50 AM COUNTER CLERK [employer] Diagnosis unknown from Last 3 Months Results * Neuro CT Outside Reference (03/15/2024 11:50 AM COUNTER CLERK [employer]) Impressions RAD_PACS_[facility] - 03/15/2024 11:50 AM COUNTER CLERK [employer] These images are for Reference purposes only and have not been reviewed by [facility]iology. There will be no report generated by a [facility] Radiologist. Narrative RAD_PACS_BJ - 03/15/2024 11:50 AM COUNTER CLERK [employer] EXAMINATION: Images For Reference Purposes Only us Hui Fletcher MD IMG CT PROCEDURES Ruth l Result RAD_PACS_[facility] from Last 3 Months Insurance [facility] [place] [id number] Care Teams Grief Counsellor Relationship Specialty Start Date End Date Kelly Grant MD [address] [facility] [address] [address] PCP - General Family Practice 02/22/24
[2024-04-09 16:48] LABS: Alanine Aminotransferase 26 U/L (6-50); Albumin Level 4.2 g/dL (3.5-5.1); Alkaline Phosphatase 92 U/L (38-126); Anion Gap 7 mmol/L (4-12); Aspartate Amino Transferase 29 U/L (17-59); Blood Urea Nitrogen 25 mg/dL (9-20); Calcium 9.2 mg/dL (8.4-10.2); Carbon Dioxide 28 mmol/L (22-30); Chloride 104 mmol/L (98-107); Estimated Glomerular Filt Rate > 60; Glucose 101 mg/dL (65-110); Potassium 4.2 mmol/L (3.4-5.0); Sodium 139 mmol/L (137-145)
[2024-04-09 17:15] LABS: Prostate Specific Antigen 5.4 ng/mL (< OR = 4.0)
== END 2024-04-09 09:14 | disposition home or self-care (01) ==
LOC: ANHGOSHLAB 09:13
PROVIDERS: PCP Family Medicine; Visit Provider Family Medicine
DX: Z12.5 Encounter for screening for malignant neoplasm of prostate (principal); E55.9 Vitamin D deficiency, unspecified; I10 Essential (primary) hypertension; E78.2 Mixed hyperlipidemia; Z87.898 Personal history of other specified conditions
CPT/HCPCS: 36415; 80053; 82306; 84153; G0103

== ENCOUNTER 2024-04-26 09:44 | Outpatient (CLI) | payer OTHER, SELFPAY ==
--- NOTE | 2024-04-26 | ECHO_ITS ---
Patient Info Name: Darnell Robles Age: 83 years : 1940 Gender: Male Ht: 71 in Wt: 185 lbs BSA: 2.06 m2 HR: 68 bpm BP: 159 / 91 mmHg Heart Rhythm: Sinus Rhythm Technical Quality: Fair Exam Date: 04/26/2024 10:08 AM Exam Location: Echo Lab Patient Status: Outpatient Admit Date: 04/26/2024 Staff Ordering Physician: Raman Grant MD Laundry Tech: Blaire Garces RDCS Attending Provider: Raman Grant MD Exam Type: CA echo doppler color flow Study Info Indications - Cardiac murmur Complete two-dimensional, color flow and Doppler transthoracic echocardiogram is performed. Summary 1. Complete two-dimensional, color flow and Doppler transthoracic echocardiogram is performed. 2. Left ventricular chamber dimension is moderately enlarged. 3. There is moderate concentric increased left ventricular wall thickness. 4. Left ventricular septal wall motion is abnormal with septal motion related to bundle branch block. 5. Basal posterior wall is akinetic. 6. Left ventricular systolic function is mildly reduced, estimated at 45-50%. 7. The left ventricular diastolic function is grade I diastolic dysfunction. 8. E/e' 11 is mildly elevated. 9. Left atrial chamber dimension is moderately enlarged. 10. Right atrial chamber dimension is mildly enlarged. 11. The aortic valve is not well visualized. Cannot determine number of aortic valve leaflets. 12. There is moderate aortic valve stenosis based on a peak velocity of 269 cm/s, mean gradient of 16 mmHg, and aortic valve area of 1.3 cm2. 13. There is moderate aortic valve sclerosis. 14. There is mild aortic valve regurgitation. 15. The mitral valve has moderately calcified annulus. 16. There is mild mitral valve regurgitation. 17. There is mild tricuspid valve regurgitation. 18. No pulmonary hypertension, estimated pulmonary arterial systolic pressure is 36 mmHg. Left Ventricle E/e' 11 is mildly elevated. Basal posterior wall is akinetic. Left ventricular chamber dimension is moderately enlarged. Left ventricular systolic function is mildly reduced, estimated at 45-50%. There is moderate concentric increased left ventricular wall thickness. Left ventricular septal wall motion is abnormal with septal motion related to bundle branch block. The left ventricular diastolic function is grade I diastolic dysfunction. Right Ventricle Right ventricular systolic function is normal and with normal TAPSE 2.3 cm. Right ventricular chamber dimension is normal. Left Atria Left atrial chamber dimension is moderately enlarged. Right Atria Right atrial chamber dimension is mildly enlarged. Aortic Valve The aortic valve is not well visualized. Cannot determine number of aortic valve leaflets. There is moderate aortic valve stenosis based on a peak velocity of 269 cm/s, mean gradient of 16 mmHg, and aortic valve area of 1.3 cm2. There is moderate aortic valve sclerosis. There is mild aortic valve regurgitation. Pulmonic Valve There is no pulmonic regurgitation. Mitral Valve The mitral valve has moderately calcified annulus. There is no mitral valve stenosis. There is mild mitral valve regurgitation. Tricuspid Valve There is mild tricuspid valve regurgitation. No pulmonary hypertension, estimated pulmonary arterial systolic pressure is 36 mmHg. Pericardium/Pleural There is no pericardial effusion. Inferior Vena Cava Normal inferior vena cava with >50% collapse upon inspiration consistent with normal right atrial pressure, 5 mmHg. Aorta The aortic root size at the sinus of Valsalva is normal. Left Ventricular Outflow Tract Name Value Normal LVOT 2D LVOT Diameter 2.1 cm LVOT Doppler LVOT Peak Velocity 104 cm/s LVOT Peak Gradient 3 mmHg LVOT Mean Gradient 2 mmHg LVOT VTI 23 cm LVOT VTI/AV VTI Ratio 0.4 LVOT Stroke Volume 77 ml LVOT CO 15.7 l/min LVOT CI 7.6 l/min/m2 Pulmonic Valve Name Value Normal RVOT Doppler RVOT Peak Gradient 2 mmHg PV Doppler PV Peak Velocity 131 cm/s PV Peak Gradient 7 mmHg Mitral Valve Name Value Normal MV Doppler MV Decel Davison 164 cm/s2 MV PHT 77 ms MV Area (PHT) 2.8 cm2 4.0-5.0 MV Diastolic Function MV E Peak Velocity 44 cm/s MV A Peak Velocity 73 cm/s MV E/A 0.6 MV Decel Time 266 ms MV Annular TDI MV Septal e' Velocity 3.9 cm/s >=8.0 MV E/e' (Septal) 11.2 <=8.0 MV Lateral e' Velocity 3.4 cm/s >=10.0 MV E/e' (Lateral) 12.7 <=8.0 MV e' Average 3.68 MV E/e' (Average) 11.9 Tricuspid Valve Name Value Normal TV Regurgitation Doppler TR Peak Velocity 280 cm/s TR Peak Gradient 31 mmHg Estimated PAP/RSVP RA Pressure 5 mmHg <=5 PA Systolic Pressure 36 mmHg <36 RV Systolic Pressure 36 mmHg <36 TV Annular TDI TV Lateral Sally s' Velocity 14.8 cm/s 9.5-18.7 Aortic Valve Name Value Normal AV Doppler AV Peak Velocity 269 cm/s AV Peak Gradient 29 mmHg AV Mean Gradient 16 mmHg AV VTI 61 cm AV Area (Cont Eq VTI) 1.3 cm2 >=3.0 AV Area (Cont Eq Angelito) 1.3 cm2 AV V1/V2 Ratio 0.38 AV Regurgitation 2D LVOT Area 3.4 cm2 AV Regurgitation Doppler AR Decel Time 6,157 ms AR Decel Davison 67 cm/s2 AR PHT 1,785 ms Ventricles Name Value Normal LV Dimensions 2D/MM IVS Diastolic Thickness (2D) 1.1 cm 0.6-1.0 LVID Diastole (2D) 5.3 cm 4.2-5.8 LVIW Diastolic Thickness (2D) 1.0 cm 0.6-1.0 LVID Systole (2D) 3.6 cm 2.5-4.0 LVOT Diameter 2.1 cm LV Mass (2D Cubed) 218.63 g 88.00-224.00 LV Mass Index (2D Cubed) 106 g/m2 49-115 Relative Wall Thickness (2D) 0.38 LV Fractional Shortening/Ejection Fraction 2D/MM LV Fractional Shortening (2D) 32 % 25-43 LV EF (2D Teicholz) 60 % 52-72 LV Diastolic Volume (4C MOD) 191 ml LV EF (4C MOD) 44 % LV Diastolic Volume (2C MOD) 173 ml LV EF (2C MOD) 48 % LV Diastolic Volume (BP MOD) 183 ml 62-150 LV Diastolic Volume Index (BP MOD) 89 ml/m2 34-74 LV Systolic Volume (BP MOD) 100 ml 21-61 LV Systolic Volume Index (BP MOD) 48 ml/m2 11-31 LV EF (BP MOD) 46 % 52-72 LV Diastolic Length (4C) 9.1 cm LV Systolic Length (4C) 8.1 cm LV Stroke Volume (4C MOD) 84 ml Atria Name Value Normal LA Dimensions LA Volume (4C A-L) 58 ml LA Volume (BP A-L) 82 ml RA Dimensions RA Area (4C) 21.3 cm2 <=18.0 Report Signatures
--- OUTSIDE RECORDS SUMMARY | 2024-04-26 10:21 | XMS_ITS | Referral Summary ---
Author Organization [facility] Address [address] [place] [address] Phone Care Team Providers Care Net Sql Developer Name Role Phone Kelly Grant MD Primary Care Provider Encounters Date Type Department Care Team Description 04/24/2024 1:30 PM SOFTWARE INTEGRATION DEVELOPER Office Visit [facility] Allergy and Immunology [address] [facility] [address] [place] [phone] Angelique Valencia MD Perivascular dermatitis; Adverse effect of drug, initial encounter 04/23/2024 Telephone [facility] Allergy and Immunology [address] [place] [address] [place] [phone] Josseline Torres 03/15/2024 11:50 AM SOFTWARE INTEGRATION DEVELOPER - 03/15/2024 11:59 PM SOFTWARE INTEGRATION DEVELOPER Hospital Encounter [facility] ([facility]) [address] [place] [address] Discharge Disposition: Discharge to home or self care 03/15/2024 Telephone [facility] - [facility] [address] [facility] [address]th [place] [address] [place] [address] Aurelia Pond CMA 03/15/2024 Telephone [facility] [address] [facility] 11th [place] [address] [place] [address] Aurelia Pond CMA 03/14/2024 1:40 PM SOFTWARE INTEGRATION DEVELOPER Office Visit [facility] ([facility]) - [facility] [address] [facility] 11th [place] [address] [place] [address] Hui Fletcher MD Submandibular sialolithiasis (Primary Dx) from Last 3 Months Allergies Active Allergy Reactions Criticality Noted Date Comments Shellfish Containing Products Hives Medium 2024 Medications simvastatin (ZOCOR) 20 mg tablet Active triamcinolone (KENALOG) 0.1 % cream APPLY TO AFFECTED AREAS ON ARMS AND TORSO TWICE DAILY NEEDED FOR NO MORE THAN 3 WEEKS IN A ROW Active famotidine (PEPCID) 20 mg tablet Take 1 tablet (20 mg total) by mouth as needed for heartburn Active levocetirizine (XYZAL) 5 mg tablet Take 1 tablet (5 mg total) by mouth every evening Active Active Problems No known active problems Social History Tobacco Use Types Packs/Day Years Used Date Smoking Tobacco: Never Tobacco Cessation:Counseling Given: Not Answered Sex and Gender Information Value Date Recorded Sex Assigned at Not on file Legal Sex Male 7:28 AM CDT Gender Identity Not on file Sexual Orientation Not on file Last Filed Vital Signs Vital Sign Reading Time Taken Comments Blood Pressure 169/81 04/24/2024 1:03 PM SOFTWARE INTEGRATION DEVELOPER Pulse 61 04/24/2024 1:03 PM SOFTWARE INTEGRATION DEVELOPER Temperature 36.6 C (97.9 F) 04/24/2024 1:03 PM SOFTWARE INTEGRATION DEVELOPER Respiratory Rate 18 04/24/2024 1:03 PM SOFTWARE INTEGRATION DEVELOPER Oxygen Saturation 97% 04/24/2024 1:03 PM SOFTWARE INTEGRATION DEVELOPER Inhaled Oxygen Concentration - - Weight 83.9 kg (185 lb) 04/24/2024 1:03 PM SOFTWARE INTEGRATION DEVELOPER Height 180.3 cm (5' 11 ) 04/24/2024 1:03 PM SOFTWARE INTEGRATION DEVELOPER Body Mass Index 25.8 04/24/2024 1:03 PM SOFTWARE INTEGRATION DEVELOPER Plan of Treatment Not on file Procedures Procedure Name Priority Date/Time Associated Diagnosis Comments NEURO CT OUTSIDE REFERENCE Routine 03/15/2024 11:50 AM SOFTWARE INTEGRATION DEVELOPER Diagnosis unknown from Last 3 Months Results * Neuro CT Outside Reference (03/15/2024 11:50 AM SOFTWARE INTEGRATION DEVELOPER) Impressions [facility] - 03/15/2024 11:50 AM SOFTWARE INTEGRATION DEVELOPER These images are for Reference purposes only and have not been reviewed by [facility] Radiology. There will be no report generated by a [facility] Radiologist. Narrative [facility] - 03/15/2024 11:50 AM SOFTWARE INTEGRATION DEVELOPER EXAMINATION: Images For Reference Purposes Only Hui Fletcher MD IMG CT PROCEDURES Ruth l Result [facility] from Last 3 Months Insurance [address] [place] [id number] [facility] [address] [place] [id number] Care Teams Net Sql Developer Relationship Specialty Start Date End Date Kelly Grant MD [address] [facility] [address] [place] [address] PCP - General Family Practice 02/22/24
--- OUTSIDE RECORDS SUMMARY | 2024-04-26 10:21 | XMS_ITS | Clinical Summary ---
Author Organization [facility] Address [address] [facility] [address] [place] [address] Phone Care Team Providers Care Line Installation Supervisor Name Role Phone Kelly Grant MD Primary [...] Department Care Team Description 04/24/2024 1:30 PM INTERIOR ASSEMBLIES DEVELOPER PROVER Office Visit [facility] Allergy and Immunology [address] [place] [address] [place] [phone] Angelique Valencia MD Perivascular dermatitis; Adverse effect of drug, initial encounter 04/23/2024 Telephone [facility] Allergy and Immunology [address] [place] [address] [place] [phone] Josseline Torres 03/15/2024 11:50 AM INTERIOR ASSEMBLIES DEVELOPER PROVER - 03/15/2024 11:59 PM INTERIOR ASSEMBLIES DEVELOPER PROVER Hospital Encounter [facility] ([facility]) [address] [place] [address] Discharge Disposition: Discharge to home or self care 03/15/2024 Telephone [facility] ([facility]) - [facility] ENT [address] [facility] 11th [place] [address] [place] [address] Aurelia Pond, [facility] 03/15/2024 Telephone Center [facility]) - [facility] [address] [facility] [address]th [place] [address] [place] [address] Aurelia Pond, [facility] 03/14/2024 1:40 PM INTERIOR ASSEMBLIES DEVELOPER PROVER Office Visit Center [facility] ([facility]) - [facility] [address] [facility] [address] [place] [address] [place] [address] Hui Fletcher MD Submandibular sialolithiasis (Primary Dx) [...] Comments Blood Pressure 169/81 04/24/2024 1:03 PM INTERIOR ASSEMBLIES DEVELOPER PROVER Pulse 61 04/24/2024 1:03 PM INTERIOR ASSEMBLIES DEVELOPER PROVER Temperature 36.6 C (97.9 F) 04/24/2024 1:03 PM INTERIOR ASSEMBLIES DEVELOPER PROVER Respiratory Rate 18 04/24/2024 1:03 PM INTERIOR ASSEMBLIES DEVELOPER PROVER Oxygen Saturation 97% 04/24/2024 1:03 PM INTERIOR ASSEMBLIES DEVELOPER PROVER Inhaled Oxygen Concentration - - Weight 83.9 kg (185 lb) 04/24/2024 1:03 PM INTERIOR ASSEMBLIES DEVELOPER PROVER Height 180.3 cm (5' 11 ) 04/24/2024 1:03 PM INTERIOR ASSEMBLIES DEVELOPER PROVER Body Mass Index 25.8 04/24/2024 1:03 PM INTERIOR ASSEMBLIES DEVELOPER PROVER Plan of Treatment Health Maintenance Due Date [...] CT OUTSIDE REFERENCE Routine 03/15/2024 11:50 AM INTERIOR ASSEMBLIES DEVELOPER PROVER Diagnosis unknown from Last 3 Months Results * Neuro CT Outside Reference (03/15/2024 11:50 AM INTERIOR ASSEMBLIES DEVELOPER PROVER) Impressions [facility] - 03/15/2024 11:50 AM INTERIOR ASSEMBLIES DEVELOPER PROVER These images are for Reference purposes only and have not been reviewed by [facility] Radiology. There will be no report generated by a [facility] Radiologist. Narrative [facility] - 03/15/2024 11:50 AM INTERIOR ASSEMBLIES DEVELOPER PROVER EXAMINATION: Images For Reference Purposes Only Hui Fletcher MD IMG CT PROCEDURES Ruth l Result [facility] from Last 3 Months Insurance [facility] Care Teams Line Installation Supervisor Relationship Specialty Start Date End Date Kelly Grant MD [address] [facility] [address] [address] PCP - General Family Practice 02/22/24
--- OUTSIDE RECORDS SUMMARY | 2024-04-26 10:21 | XMS_ITS | Continuity of Care Document ---
Author Organization [facility] Address [address] [place] [address] Phone Care Team Providers Care Claims Technician Name Role Phone Morgan Moreno Unavailable Unavailable Procedures Procedure Date Post-op Follow-up Visit Post-op Follow-up Visit Remove Cataract, Insert Lens Eye Exam Established Pt Echo Exam Of Eye Eye Exam, New Patient Refraction Advance Directives Directive Yes / No Effective Date File Name No Information Encounters Encounter Description Practice Location Reason(s) For Visit Diagnoses Date Provider Providers Copied on Encounter [facility], [address] [place] [address] [address], [place], [place], [id number], [place] tel:[phone] [facility] No Information 9-200 9 Krishnasamy Morgan. [address] [facility] [address], [place], [address], [place]. tel:[phone] [facility], [address], [place], [place], [id number], [place] tel:[phone] [facility] No Information 2-200 9 Krishnasamy Morgan. [address] [facility] [address], [place], [address], [place]. tel:[phone] [facility], [address], [place], [place], [id number], [place] tel:[phone] [facility] No Information June-2 1-200 9 Krishnasamy Morgan. [address] [place] [address] [address], [place], [facility], [place]. tel:[phone] [facility], [address] [facility] [address], [place], [place], [id number], tel:[phone] [facility] No Information June-0 5-200 9 Krishnasamy Morgan. [address] [place] [address] [address], [place], [facility], [place]. tel:[phone] Referring Provider: Morgan cagle, [address] [place] [address], [facility]. tel:[phone] [facility], [address] [facility] [address], [place], [place], [id number], tel:[phone] [facility] No Information 4-200 9 Krishnasamy Morgan. [address] [place] [address], [facility], [place]. tel:[phone] Referring Provider: Fabrice Gabriel, [address] [place], [place] [address], [place], [place], [facility]. tel:[phone] Family History Family Member Type Diagnosis Age At Onset No Information Payers Payer name Insurance type Covered constitution party ID Authoriza tion(s) No Information Social [...]
== END 2024-04-26 09:45 | disposition home or self-care (01) ==
PROVIDERS: PCP Family Medicine; Visit Provider Family Medicine
DX: R94.31 Abnormal electrocardiogram [ECG] [EKG] (principal); R01.1 Cardiac murmur, unspecified
CPT/HCPCS: 93306

== ENCOUNTER 2024-08-13 15:15 | Emergency (ER) | payer OTHER, SELFPAY ==
--- NOTE | ~2024-08-13 | XR_ITS ---
XR knee RT min 4V Ordering provider: Nissa Savage APRN History: . PAIN RT KNEE, INJURY . Comparison: None. FINDINGS: BONES: No acute fracture or dislocation. JOINT SPACES: Osteophytes in the knee and patella. SOFT TISSUES: Normal. IMPRESSION: No acute osseous abnormality right knee. Mild osteoarthritic changes. Reviewed, dictated and finalized at location A.
--- NOTE | 2024-08-13 15:16 | ED_ITS ---
HPI - Extremity Injury (Lower) General Chief Complaint: Extremity Injury, Lower Stated Complaint: Right Knee Pain Time Seen by Provider: 08/13/24 15:16 Source: patient Mode of arrival: ambulatory Limitations: no limitations History of Present Illness HPI Narrative: Patient is an 83-year-old male that presents with right knee pain for 4 hours. Patient states he stepped off the bottom shelf at [employer] and felt a sharp pain into knee. Patient has elevated, used ice, applied splint. Patient states it is painful to bear weight. Denies any numbness, tingling or weakness to distal portion of leg. Related Data Home Medications ?Medication ?Instructions ?Recorded ?Confirmed ?Last Taken ?Type multivitamin 1 tablet PO DAILY 09/18/19 04/09/24 Unknown History hydroxyzine HCl 25 mg tablet 25 mg PO QHS PRN 12/04/23 04/09/24 Unknown History cholecalciferol (vitamin D3) 125 125 mcg PO DAILY 04/09/24 04/09/24 Unknown History mcg (5,000 unit) capsule famotidine 20 mg tablet 20 mg PO DAILY 04/09/24 04/09/24 Unknown History dupilumab 300 mg/2 mL subcutaneous 300 mg subcut .every 2 weeks 08/13/24 08/13/24 Unknown History pen injector (Dupixent) Allergies Allergy/AdvReac Type Severity Reaction Status Date / Time shellfish derived Allergy Unknown Skin Verified 08/13/24 15:43 Reaction SHELL FISH Allergy Unknown HIVES Uncoded 08/13/24 15:43 Review of Systems Review of Systems: All systems reviewed & are unremarkable except as noted in HPI and below Constitutional: Constitutional: Denies body ache(s), Denies chills, Denies fatigue, Denies fever(s), Denies headache(s), Denies malaise and Denies weakness Eyes: Eyes: Denies blurry vision, Denies irritation and Denies loss of vision ENT: Denies otalgia, Denies headache(s), Denies nasal discharge, Denies sinus pain and Denies sore throat Cardiovascular: Cardiovascular: Denies chest pain, Denies irregular heart rhythm and Denies dyspnea Respiratory: Respiratory: Denies dyspnea Gastrointestinal: Gastrointestinal: Denies abdominal pain, Denies melena, Denies hematochezia, Denies diarrhea, Denies nausea and Denies vomiting Musculoskeletal: Musculoskeletal: Denies back pain, Denies myalgias and Reports arthralgias Integumentary/Breasts: Skin/Breast: Denies pruritus and Denies rash Neurologic: Denies headache(s), Denies loss of vision and Denies weakness Psychiatric: Psychiatric: Reports no additional psychiatric complaints Endocrine: Endocrine: Denies fatigue PMFSH Past Medical History Medical History Chronic venous insufficiency of lower extremity GERD without esophagitis BPH loc w/o ur obs/LUTS White coat syndrome without hypertension Ventral hernia (~09/2021) fat containing Closed left fibular fracture Strain of muscle of right hip History of elevated PSA Combined hyperlipidemia Surgical History Surgical History History of elbow surgery (~1964) right elbow fracture ORIF Family History Family History Mother Family history of cardiovascular disease, Onset Age: 80 Cerebrovascular accident, Onset Age: 80 Social History Social History Social History: Caffeine- 2 cups coffee daily Smoking status: Never smoker Second hand tobacco smoke exposure: No Alcohol intake: current Drinks per week: 2 Alcohol use details: wine Substance use: never Substance use type: does not use Living arrangements: with family Occupation/Education: retired Gender identity (if verbalized by the patient): Male Sexual Orientation (if Verbalized by the Patient): Straight or Heterosexual Agree to blood products: Yes Comments At time of signature, agree with nursing past medical, surgical, social and family history. There is no relevant family history pertinent to the presenting complaint. Exam Const: General: cooperative, healthy appearing, comfortable, no acute distress and well nourished Nutritional Appearance: well nourished Orientation/consciousness: patient oriented x3 Limitations: no limitations HENMT: Head: normal to inspection, normocephalic and atraumatic Ears: hearing grossly normal bilaterally and external ears normal Face/Nose/Sinus: Normal external nose present, normal facial exam and face symmetric Face and sinus: normal facial exam and face symmetric Mouth: Yes lip normal Eyes: General: appearance normal, both eyes and all related structures Alignment and Position: alignment normal and position normal Periorbital: periorbital findings normal Eyelids: eyelids normal Pupils: Equal, round and reactive pupils present EOM: EOMs intact bilaterally Neck: Neck: normal visual inspection, full ROM and supple Chest: Chest palpation & inspection: normal inspection of the chest Resp: Effort & Inspection: normal respiratory effort and able to speak in complete sentences Auscultation: clear to auscultation bilaterally Cardio: Rate: regular rate Rhythm: regular rhythm Heart sounds: S1 normal heart sound present and S2 normal heart sound present GI: Inspection: normal to inspection Skin: General skin exam: normal color and no rashes or lesions noted Neuro: General: patient oriented x3 and moves all extremities Cranial nerves: Yes Equal, round and reactive pupils present Speech: normal speech Gait exam (Neuro): Normal gait present Extrem: General: normal to inspection, full ROM and no edema Right lower extremity: hip/thigh Details: normal to inspection and normal ROM; no tenderness, no swelling and no ecchymosis, knee Details: normal to inspection, normal ROM and knee ligament exam normal Details: anterior drawer test normal, posterior drawer test normal, valgus stress test normal and varus stress test normal; no tenderness, no swelling, no ecchymosis, no deformity and no unusual warmth, ankle Details: normal to inspection and normal ROM; no tenderness, no swelling and achilles tendon exam normal and foot Details: normal capillary refill, toes with normal ROM and vascular exam Details: dorsalis pedis pulse present and normal capillary refill; no tenderness Psych: Appearance: grossly normal and well kempt Mental Status: mental status grossly normal Speech and movement: Normal speech and movement present Affect: normal affect Attitude: cooperative Thought process: Normal thought process present Course Course Emergency Course: Patient is aware of diagnosis, understands and agrees to treatment plan. Anticipatory guidance given. Patient agrees to follow-up as directed and is aware of reasons to seek care at the emergency department. Portions of this record may have been created with voice recognition software Level of Care: Express Care Visit Vital Signs Vital signs: Reviewed MDM - Extremity Injury (Lower) MDM Narrative Medical decision making narrative: Pt well hydrated appearing, in no respiratory distress, hemodynamically stable. Recommend supportive care. The patient is stable at time of discharge the clinical impression was discussed and the patient was given the opportunity to ask questions, which were addressed as completely as possible given the information available at present. Anticipatory guidance and return to care precautions were discussed and the importance of primary care follow-up was stressed and encouraged. The patient voiced understanding of the plan, indications to return, and the need for follow-up. Exam findings show no acute concerns or changes Patient is appropriate for outpatient treatment and follow-up. Differential Diagnosis Differential diagnosis: Likely acute internal derangement of knee and other (knee strain, knee effusion) Imaging Data Radiologist's impression: XR knee RT min 4V Ordering provider: Nissa Savage APRN History: . PAIN RT KNEE, INJURY . Comparison: None. FINDINGS: BONES: No acute fracture or dislocation. JOINT SPACES: Osteophytes in the knee and patella. SOFT TISSUES: Normal. IMPRESSION: No acute osseous abnormality right knee. Mild osteoarthritic changes. Discharge Plan Discharge Clinical Impression: Knee strain Qualifiers: Encounter type: initial encounter Laterality: right Qualified Code(s): S86.911A - Strain of unspecified muscle(s) and tendon(s) at lower leg level, right leg, initial encounter Patient Disposition: Home Condition: Stable Instructions: Knee Sprain (ED) Additional Instructions: Xray showed no fracture. Minimize activities that aggravate the condition The RICE protocol. Follow the RICE protocol as soon as possible after your injury: Rest your knee by not walking on it. Ice should be immediately applied to keep the swelling down. It can be used for 20 to 30 minutes, three or four times daily. Do not apply ice directly to your skin. Compression dressings, bandages or alejandro-wraps will immobilize and support your injured knee. Elevate your knee above the level of your heart as often as possible during the first 48 hours. Medication: Nonsteroidal anti-inflammatory drugs (NSAIDs) such as ibuprofen and naproxen can help control pain and swelling. Because they improve function by both reducing swelling and controlling pain, they are a better option for mild sprains than narcotic pain medicines. Please schedule a follow-up visit with your personal physician for further evaluation and treatment within 1week OR If your symptoms persist, change or worsen significantly before you can contact your personal physician then please, without delay, go to the emergency department for further evaluation. Patient Language: Croatian Prescriptions: No Action multivitamin Tablet 1 tablet PO DAILY cholecalciferol (vitamin D3) 125 mcg (5,000 unit) capsule 125 mcg PO DAILY triamcinolone acetonide 0.5 % cream 1 applic topical BID Qty: 400 0RF famotidine 20 mg tablet 20 mg PO DAILY hydroxyzine HCl 25 mg tablet 25 mg PO QHS PRN cyanocobalamin (vitamin B-12) 1,000 mcg tablet, sublingual 1,000 mcg sublingual DAILY Qty: 90 3RF simvastatin 20 mg tablet 20 mg PO QHS Qty: 100 2RF Follow-up/Referrals: Parminder Contreras MD [Physician] - 3 Days (knee pain) Raman Grant MD [Primary Care Provider] - 3 Days Time of Disposition: 16:25
[2024-08-13 15:26] VITALS: BP 152/75; PULSE 72; RESP 18; TEMP 36.5; O2SAT 97
== END 2024-08-13 16:32 | disposition home or self-care (01) ==
PROVIDERS: Emergency Provider Nurse Practitioner Family; PCP Family Medicine
DX: S86.911A Strain of unspecified muscle(s) and tendon(s) at lower leg level, right leg, initial encounter (principal); X58.XXXA Exposure to other specified factors, initial encounter; K21.9 Gastro-esophageal reflux disease without esophagitis; N40.0 Benign prostatic hyperplasia without lower urinary tract symptoms; E78.2 Mixed hyperlipidemia
CPT/HCPCS: 73564; 99213; G0463

== ENCOUNTER 2024-10-08 10:26 | Outpatient (CLI) | payer OTHER, SELFPAY ==
--- OUTSIDE RECORDS SUMMARY | 2024-10-08 10:55 | XMS_ITS | Clinical Summary ---
Author Organization [facility] Address [address] [place] [address] Phone Care Team Providers Care Risk Manager Name Role Phone Kelly Grant MD Primary Care Provider Allergies Active Allergy Reactions Criticality Noted Date Comments Shellfish Containing Products Hives Medium 2024 Medications simvastatin (ZOCOR) 20 mg tablet Active famotidine (PEPCID) 20 mg tablet Take 1 tablet (20 mg total) by mouth as needed for heartburn Active levocetirizine (XYZAL) 5 mg tablet Take 1 tablet (5 mg total) by mouth every evening Active multivitamin tabletIndicatio ns:Vitamin Deficiency Prevention Take 1 tablet by mouth daily Active hydrOXYzine (ATARAX) 25 mg tablet Take 1 tablet (25 mg total) by mouth 3 (three) times a day as needed for itching Active triamcinolone (KENALOG) 0.1 % cream Apply topically 2 (two) times a day 453.6 g 3 5 Active dupilumab (Dupixent Pen) pen injectorIndicat ions:Atopic Dermatitis Inject 4 mL (600 mg total) under the skin every 14 (fourteen) days For one dose then maintenance dose of 300mg every 2 weeks. 4 mL 11 5 Active Active Problems Problem Noted Date Diagnosed Date LBBB (left bundle branch block) 05/06/2024 Nonrheumatic aortic valve stenosis 05/06/2024 Mixed hyperlipidemia 05/06/2024 Encounters Date Type Department Care Team Description 10/03/2024 Telephone [facility] [address] [place] [address] Farhan Mai RPh from Last 3 Months Medical History Medical History Date Comments HL (hearing loss) 40 years ago Tinnitus 40 years ago Mixed hyperlipidemia Social History Tobacco Use Types Packs/Day Years Used Date Smoking Tobacco: Never Smokeless Tobacco: Never Tobacco Cessation:Counseling Given: Not Answered Sex and Gender Information Value Date Recorded Sex Assigned at Not on file Legal Sex Male 7:28 AM CDT Gender Identity Not on file Sexual Orientation Not on file Obstetrics History Last Filed Vital Signs Vital Sign Reading Time Taken Comments Blood Pressure 120/80 05/06/2024 7:59 AM CDT Pulse 86 05/06/2024 7:59 AM CDT Temperature 36.6 C (97.9 F) 04/24/2024 1:03 PM SPIKE MAKER Respiratory Rate 18 04/24/2024 1:03 PM SPIKE MAKER Oxygen Saturation 94% 05/06/2024 7:59 AM CDT Inhaled Oxygen Concentration - - Weight 86.6 kg (191 lb) 05/06/2024 7:59 AM CDT Height 180.3 cm (5' 11) 05/06/2024 7:59 AM CDT Body Mass Index 26.64 05/06/2024 7:59 AM CDT Plan of Treatment Health Maintenance Due Date Last Done Comments Depression Screening 1942 Fall Risk Assessment 1942 Hepatitis B Screening 1960 Well Visit 65+ 12/15/2007 Pneumococcal vaccine 65+ (2 of 2 - PCV) 02/21/2016 02/20/2015 Zoster Vaccine (2 of 2) 12/12/2018 10/17/2018 Covid-19 Vaccine ( season) 2023 12/10/2020, 05/08/2020, 04/16/2020 Influenza Vaccine (#1) 2024 2, 11/11/2020, 12/09/2019 DTaP/Tdap/Td Vaccine (3 - Td or Tdap) 03/18/2031, 08/29/2015 Insurance [facility] Care Teams Risk Manager Relationship Specialty Start Date End Date Kelly Grant MD [facility][NOTE 3] [address] [address] PCP - General Family Practice 02/22/24
[2024-10-08 12:55] LABS: Hematocrit 45.5 % (42.0-52.0); Hemoglobin 15.5 g/dL (14.0-18.0); Immature Granulocyte Percent A 0.4 % (0-0.5); Lymphocytes Absolute Auto 1.41 K/mm3 (0.9-3.2); Mean Corpuscular HGB Conc 34.1 g/dl (32-36); Mean Corpuscular Hemoglobin 31.6 pg (26-34); Mean Corpuscular Volume 92.7 fl (80-100); Nucleated Red Blood Cells Absolute Auto 0.000 K/mm3 (0.0-0.012); Nucleated Red Blood Cells Perc 0.0 % (0.0-0.2); Platelet Count Result 244 k/mm3 (150-375); Red Blood Count 4.91 M/mm3 (4.6-6.20); White Blood Count 7.2 K/mm3 (4.5-10.0)
[2024-10-08 13:49] LABS: Hemoglobin A1C 5.5 % (<5.7)
[2024-10-08 15:08] LABS: Alanine Aminotransferase 24 U/L (6-50); Albumin Level 4.2 g/dL (3.5-5.1); Alkaline Phosphatase 86 U/L (38-126); Anion Gap 5 mmol/L (4-12); Aspartate Amino Transferase 49 U/L (17-59); Bilirubin,Total 1.0 mg/dL (0.2-1.3); Blood Urea Nitrogen 19 mg/dL (9-20); Calcium 9.3 mg/dL (8.4-10.2); Carbon Dioxide 27 mmol/L (22-30); Chloride 101 mmol/L (98-107); Cholesterol 164 mg/dL (0-200); Estimated Glomerular Filt Rate > 60; Glucose 104 mg/dL (65-110); HDL Direct 42 mg/dL; Potassium 4.8 mmol/L (3.4-5.0); Sodium 133 mmol/L (137-145); Total Protein 7.8 g/dL (6.3-8.2); Triglycerides 132 mg/dL (<150)
[2024-10-08 15:43] LABS: Prostate Specific Antigen 5.7 ng/mL (< OR = 4.0)
[2024-10-08 16:02] LABS: Vitamin B12 874.0 pg/mL (239-931)
[2024-10-08 16:54] LABS: Thyroid Stimulating Hormone Reflex 3.590 uIU/mL (0.465-4.68)
== END 2024-10-08 10:27 | disposition home or self-care (01) ==
LOC: ANHGOSHLAB 10:27
PROVIDERS: PCP Family Medicine; Visit Provider Family Medicine
DX: E78.2 Mixed hyperlipidemia (principal); I10 Essential (primary) hypertension; Z12.5 Encounter for screening for malignant neoplasm of prostate; R97.20 Elevated prostate specific antigen [PSA]; E53.8 Deficiency of other specified B group vitamins; Z00.00 Encounter for general adult medical examination without abnormal findings; E78.5 Hyperlipidemia, unspecified; R73.9 Hyperglycemia, unspecified; E55.9 Vitamin D deficiency, unspecified
CPT/HCPCS: 36415; 80053; 80061; 82306; 82607; 83036; 84153; 84443; 85025; G0103

== ENCOUNTER 2024-10-30 11:06 | Outpatient (CLI) | payer OTHER, SELFPAY ==
--- NOTE | ~2024-10-30 | CT_ITS ---
EXAMINATION: CT abdomen pelvis wo con DATE: 10/30/2024 11:20 INDICATION: Ventral hernia without obstruction. TECHNIQUE: Computed tomography (CT) of the abdomen and pelvis was performed without intravenous contrast. Automated exposure control and iterative reconstruction technique were employed. The dose-length product was 635.55 mGy-cm. COMPARISON: None. FINDINGS: The visualized portions of lung bases demonstrate mild atelectasis. No pleural effusion. The heart size is normal. There are calcifications of the aortic valve and coronary arteries. No pericardial effusion. There is a small sliding hiatal hernia. Calcifications in the liver and spleen are consistent with old granulomatous disease. The gallbladder is normal. Calcifications in the head of the pancreas may be vascular calcifications or secondary to chronic pancreatitis. The adrenal glands and kidneys are normal. There is no urolithiasis. The prostate is moderately enlarged. There is diffuse bladder wall thickening, likely secondary to chronic outlet obstruction. There are no dilated loops of bowel. The appendix is normal. There is a supraumbilical ventral hernia containing fat. There are no pathologically enlarged lymph nodes. There is no free intraperitoneal fluid. There is severe lumbar spondylosis. IMPRESSION: 1. Supraumbilical ventral hernia containing fat. 2. Small sliding hiatal hernia. Reviewed, dictated and finalized at location E.
== END 2024-10-30 11:07 | disposition home or self-care (01) ==
LOC: MICIMG 11:08
PROVIDERS: PCP Family Medicine; Visit Provider Surgery
DX: K43.6 Other and unspecified ventral hernia with obstruction, without gangrene (principal); K44.9 Diaphragmatic hernia without obstruction or gangrene; K42.9 Umbilical hernia without obstruction or gangrene
CPT/HCPCS: 74176

== ENCOUNTER 2024-12-10 08:45 | Outpatient (CLI) | payer OTHER, SELFPAY ==
--- OUTSIDE RECORDS SUMMARY | 2024-12-10 09:30 | XMS_ITS | Clinical Summary ---
Author Organization [facility] Address [address] [place] [address] Phone Care Team Providers Care Superintendent Oil Well Services Name Role Phone Kelly Grant MD Primary Care Provider Allergies Active Allergy Reactions Criticality Noted Date Comments Shellfish Containing Products Rash Medium 2024 Medications simvastatin (ZOCOR) 20 mg [...] Encounters Date Type Department Care Team Description 11/27/2024 10:15 AM CDT Office Visit [facility] Medicine Allergy and Immunology [address] [place] [address] Angelique Valencia MD Atopic dermatitis, unspecified type (Primary Dx) 10/03/2024 Telephone [facility] [address] [place] [address] Farhan Mai, [facility] from Last 3 Months Immunizations Immunization Administration Dates Next Due Influenza LAIV (Nasal) 11/18/2015 Influenza, Quad, Adjuvantate d, Intramuscular 12/09/2019 Influenza, Quadrivalent, Hig h Dose, Preservative Free, Intrr 11/09/2021,11/11/2020 Influenza, Trivalent, High D ose, Split, Preservative Free, Intramuscular 11/25/2019 Influenza, Trivalent, IM (MDV) 5,11/18/2014,10/26/2011,12/15 Pneumococcal Conjugate PCV 13 02/20/2014, 014 Pneumococcal Polysaccharide PPV23 08/07/2018,02/2015,02/12/2008 Td, Not Adsorbed 03/24/2003 Tdap 03/18/2021, 6,06/12/2015,10/28 ZOSTER LIVE 02/06/2017 ZOSTER Recombinant 10/17/2018 Medical History Medical History Date Comments HL [...] Sign Reading Time Taken Comments Blood Pressure 162/90 11/27/2024 10:04 AM CDT Pulse 67 11/27/2024 10:04 AM CDT Temperature 36.5 C (97.7 F) 11/27/2024 10:04 AM CDT Respiratory Rate 18 11/27/2024 10:04 AM CDT Oxygen Saturation 96% 11/27/2024 10:04 AM CDT Inhaled Oxygen Concentration - - Weight 83.5 kg (184 lb) 11/27/2024 10:04 AM CDT Height 180.3 cm (5' 11) 11/27/2024 10:04 AM CDT Body Mass Index 25.66 11/27/2024 10:04 AM CDT Plan of Treatment Health Maintenance Due Date Last Done Comments Depression Screening 1942 Fall Risk Assessment 1942 Hepatitis B Screening 1960 Well Visit 65+ 12/15/2007 Zoster Vaccine (3 of 3) 12/12/2018 10/17/2018, 02/06 Covid-19 Vaccine (4 - 2024-2 6 season) 2024 12/10/2020, 05/08/2020, 04/16/2020 Influenza Vaccine (#1) 2024 , 11/11/2020, 12/09/2019, Additional history exists DTaP/Tdap/Td Vaccine (5 - Td or Tdap) 03/18/2031 03/18/2021, 08/29/2015, 06/12/2015, Additional history exists Pneumococcal vaccine 65+ Completed 019, 02/20/2015, 02/20/2014, Additional history exists Insurance [address] [place] [address] [facility] [address] [place] [id number] [facility] Care Teams Superintendent Oil Well Services Relationship Specialty Start Date End Date Kelly Grant MD [address] [place] [id number] PCP - General Family Practice 02/22/24
== END 2024-12-10 08:46 | disposition home or self-care (01) ==
LOC: ANHSURGERY 08:50
PROVIDERS: PCP Family Medicine; Visit Provider Surgery
DX: K43.6 Other and unspecified ventral hernia with obstruction, without gangrene (principal)
CPT/HCPCS: 36415; 86850; 86900; 86901

== ENCOUNTER 2024-12-17 00:29 | Day surgery (SDC) | payer OTHER, SELFPAY ==
--- NOTE | 2024-12-06 10:29 | PC.NURSE ---
[facility] has started construction of its new state of the art ER which will open Spring 2026. With this, we anticipate parking may be a challenge for some our surgical patients and families. Parking spaces are limited but are available for all Surgical, obstetrics, and ER patients sharing this lot. If you arrive and find you are having a hard time finding a parking space, please note that we understand the challenges, please drive around the hospital and park near Hospital Entrance 1. When you enter this entrance, you can ask a volunteer to direct or take you back to the surgical waiting area to check in. We appreciate everyone?s understanding of these expected challenges while we build for your future. Report to the Outpatient Waiting Room, entrance under the green pavilion located off [address], at time __10 AM on date __12/17/24 . Planned Procedure Time: __1200 NOON .? Time changes happen often and if your time is changed the preop area will call you the afternoon before. - You and your visitor will be asked to self-screen and do not enter if you have any COVID symptoms. Please call surgeon if you need to reschedule. - A mask is optional within the hospital at this time. Patients may have clear liquids (water, carbonated beverages, clear teas, apple juice) until 3 hours prior to surgery( 9AM) with a maximum of 20 ounces. - No food from midnight until time of surgery and no smoking, or chewing tobacco (or any form of nicotine). No chewing gum, candy or mints. Take only the following medications with a SIP of water on the morning of surgery: NONE DO NOT STOP ANY OF YOUR OTHER PRESCRIPTION MEDICATIONS PRIOR TO SURGERY EXCEPT THE FOLLOWING Hold all vitamins and supplements for 3 days per anesthesiologist.LAST DOSE 12/13/24 Medications to discontinue per physician NONE Please no make-up, nail hebrew, hairspray, perfume, deodorant, or body powder the day of surgery.? No jewelry (including any body piercings) or valuables the day of surgery, leave them at home.? Please take a shower or bath the night before, or the morning of, surgery with an antibacterial soap.? Wear comfortable, loose fitting clothing.? Children are encouraged to wear pajamas. - Jewelry must be removed prior to entering the operating room.? Rings and piercings that are not removed may be cut off. - The hospital will not accept responsibility for valuables.? - Please leave all valuables, including medications, at home the day of surgery. If you are going home after surgery, a licensed line haul driver must drive you home.? - NO public transportation without another adult if you receive anesthesia. - We recommend that an adult stay with you for 24 hours following discharge. - We also recommend that you do not drive, make important decision, drink alcoholic beverages, or take any drugs that were not prescribed by your health care provider for at least 24 hours after your discharge time. For Pediatric surgeries, we recommend two adults accompany the child home. Follow any additional instructions given to you from your surgeon. Telephone instructions given to __PATIENT and asked if any additional questions and then verbalized understanding. Patient advised to call surgeon office or pre surgery nurse liaison [phone] if any additional questions.
[2024-12-06 10:45] VITALS: BMI 25.8
[2024-12-17] VITALS (13 sets, daily range): BP systolic 110–172; BP diastolic 55–79; PULSE 52–100; RESP 10–21; TEMP 36.4–36.5; O2SAT 92–100; BMI 25.2
--- OUTSIDE RECORDS SUMMARY | 2024-12-17 00:31 | XMS_ITS | Clinical Summary ---
Author Organization [facility] Address [address] [place] [address] Phone Care Team Providers Care Oracle Fusion Middleware Developer Name Role Phone Kelly Grant MD [...] Description 11/27/2024 10:15 AM CDT Office Visit [facility] Medicine Allergy and Immunology [address] [place] [address] Angelique Valencia MD Atopic dermatitis, unspecified type (Primary Dx) 10/03/2024 Telephone [facility] [address] [place] [address] Farhan Mai, [facility] from Last 3 Months Immunizations Immunization Administration [...] Additional history exists Insurance [address] [place] [id number] [facility] [address] [place] [id number] [facility] Care Teams Oracle Fusion Middleware Developer Relationship Specialty Start Date End Date Kelly Grant MD [address] [place] [id number] PCP - General Family Practice 02/22/24
[2024-12-17] MEDS: LACTATED RINGERS 1,000 ML 30 ML IV CONT ×2 (10:50→15:42)
[2024-12-17] MEDS: ACETAMINOPHEN 500 MG TABLET 1000 MG PO (10:57)
[2024-12-17] MEDS: KETOROLAC 15 MG/ML VIAL (*BKC) IV PUSH (10:57)
--- NOTE | 2024-12-17 11:01 | P.PNAN_ITS ---
Anes - Initial Pre Proc Eval Procedure: Operation Date: 12/17/24 12:00 Proposed Procedures p Robotic Assisted Laparoscopic Extended Totally Extraperitoneal Incarcerated Ventral Hernia Repair with Mesh, Possible Open - Toy Anderson MD Date/Time: 12/17/24 11:01 Surgeon: Toy Anderson MD Pre Op Diagnosis: Incarcerated Ventral Hernia 4 cm Patient Data Age: 84 Gender: M Height: 1.8 m Weight: 82 kg Last Vital Signs Temp 97.7 F 12/17/24 10:10 Pulse 71 12/17/24 10:10 Resp 16 12/17/24 10:10 BP 172/73 H 12/17/24 10:10 Pulse Ox 100 12/17/24 10:10 O2 Del Method Room Air 12/17/24 10:10 Allergies Allergy/AdvReac Type Severity Reaction Status Date / Time shellfish derived Allergy Unknown Skin Verified 12/17/24 10:26 Reaction SHELL FISH Allergy Intermediate HIVES Uncoded 12/06/24 10:29 Home Medications ?Medication ?Instructions ?Recorded ?Confirmed ?Type multivitamin 1 tablet PO DAILY 09/18/19 1 History cyanocobalamin (vitamin B-12) 1,000 mcg sublingual GONZÁLEZ LY #90 tabs 10/03/23 12/17/24 Rx 1,000 mcg sublingual tablet famotidine 20 mg tablet 20 mg PO PRN PRN heartburn 0 04/09/24 12/06/24 History simvastatin 20 mg tablet 20 mg PO QHS #100 tabs 06/0412/17/24 Rx dupilumab 300 mg/2 mL subcutaneous 300 mg subcut .ever y 2 weeks 08/13/24 12/06/24 History pen injector (Dupixent) cholecalciferol (vitamin D3) 125 125 mcg PO .COMPLEX 0 10/08/24 12/17/24 History mcg (5,000 unit) capsule triamcinolone acetonide 0.1 % applic topical DAILY PRN ECZEMA 10/08/24 11/14/24 History topical cream Patient hx anesthesia problems: none Family hx anesthesia problems: none Results Review: All pre-operative results and documents have been reviewed as part of the pre- operative evaluation. [facility] Past Medical History Medical History Atopic dermatitis Left ventricular systolic dysfunction (~04/2024) Aortic valve stenosis (~04/2024) Chronic venous insufficiency of lower extremity GERD without esophagitis BPH loc w/o ur obs/LUTS White coat syndrome without hypertension Ventral hernia (~09/2021) fat containing Closed left fibular fracture Strain of muscle of right hip History of elevated PSA Combined hyperlipidemia Surgical History Surgical History History of elbow surgery (~1964) right elbow fracture ORIF Family History Family History Mother Family history of cardiovascular disease, Onset Age: 80 Cerebrovascular accident, Onset Age: 80 Social History Social History Social History: Caffeine- 2 cups coffee daily Smoking status: Never smoker Second hand tobacco smoke exposure: No Alcohol intake: current Drinks per week: 2 Alcohol use details: wine Substance use: never Substance use type: does not use Living arrangements: with family Occupation/Education: retired Gender identity (if verbalized by the patient): Male Sexual Orientation (if Verbalized by the Patient): Straight or Heterosexual Spiritual care concerns: No Agree to blood products: Yes Anes - Eval Final PreProcedure Day of Procedure 12/17/24 11:01 Patient weight: normal Lungs: normal air movement Airway: Mallampati scale class II and special considerations (R upper tooth chipped. ) Neurological: alert and oriented Last oral intake: >/= 8 hours ASA classification: III Emergent: no Anesthetic plan: proceed Anesthesia type and monitoring: general ETT and standard monitoring Results Review: All pre-operative results and documents have been reviewed as part of the pre- operative evaluation. Hyperlipidemia, Mod by ECHO 04/2024, LVEF 45-50%, pt walks 3 miles/3 x weekly, no cp or sob. Informed Consent: The patient's anesthetic plan and its attendant risks and benefits were discussed with the patient/family/POA. Questions were solicited and answers provided to the satisfaction of the patient/family/POA.
--- NOTE | 2024-12-17 11:35 | PM.IMHP ---
H&P: HPI History of Present Illness Date/Time: 12/17/24 11:35 Chief Complaint: incarcerated ventral hernia Narrative: Patient is an 84 yo male who was seen in clinic on 11/12/2024 for his ventral hernia. He reports that this hernia is symptomatic and wishes to have it repaired. The patient has approximately a 4 cm fat containing incarcerated ventral hernia as seen on the CT scan from 11/06/2024. He also has approximately a 2.5 cm diastasis identified on the CT scan. He reports no changes in his hernia since he was seen on 11/12. He presents today for robotic eTEP repair of ventral hernia. Review of Systems Review of Systems: All systems reviewed & are unremarkable except as noted in HPI and below PMFSH Past Medical History Medical History Atopic dermatitis Left ventricular systolic dysfunction (~04/2024) Aortic valve stenosis (~04/2024) Chronic venous insufficiency of lower extremity GERD without esophagitis BPH loc w/o ur obs/LUTS White coat syndrome without hypertension Ventral hernia (~09/2021) fat containing Closed left fibular fracture Strain of muscle of right hip History of elevated PSA Combined hyperlipidemia Surgical History Surgical History History of elbow surgery (~1964) right elbow fracture ORIF Family History Family History Mother Family history of cardiovascular disease, Onset Age: 80 Cerebrovascular accident, Onset Age: 80 Social History Social History Social History: Caffeine- 2 cups coffee daily Smoking status: Never smoker Second hand tobacco smoke exposure: No Alcohol intake: current Drinks per week: 2 Alcohol use details: wine Substance use: never Substance use type: does not use Living arrangements: with family Occupation/Education: retired Gender identity (if verbalized by the patient): Male Sexual Orientation (if Verbalized by the Patient): Straight or Heterosexual Spiritual care concerns: No Agree to blood products: Yes Meds Home Medications and Allergies Home Medications ?Medication ?Instructions ?Recorded ?Confirmed ?Type multivitamin 1 tablet PO DAILY 09/18/19 12/17/24 History cyanocobalamin (vitamin B-12) 1,000 mcg sublingual DAILY #90 tabs 10/03/23 12/17/24 Rx 1,000 mcg sublingual tablet famotidine 20 mg tablet 20 mg PO PRN PRN heartburn 04/09/24 12/06/24 History simvastatin 20 mg tablet 20 mg PO QHS #100 tabs 06/04/24 12/17/24 Rx dupilumab 300 mg/2 mL subcutaneous 300 mg subcut .every 2 weeks 08/13/24 12/06/24 History pen injector (Dupixent) cholecalciferol (vitamin D3) 125 125 mcg PO .COMPLEX 10/08/24 12/17/24 History mcg (5,000 unit) capsule triamcinolone acetonide 0.1 % applic topical DAILY PRN ECZEMA 10/08/24 11/14/24 History topical cream Allergies Allergy/AdvReac Type Severity Reaction Status Date / Time shellfish derived Allergy Unknown Skin Verified 12/17/24 10:26 Reaction SHELL FISH Allergy Intermediate HIVES Uncoded 12/06/24 10:29 Vital Signs Vital Signs - 24 hr 12/17/24 10:10 Temperature 97.7 F Pulse Rate 71 Respiratory Rate 16 Blood Pressure 172/73 H Pulse Oximetry 100 Oxygen Delivery Room Air Exam Narrative: General: Awake, Alert, NAD HEENT: NCAT, mucous membranes pink and moist Neck: No masses or swelling, no JVD Heart: RR, HDS Lungs: Symmetric expansion, no IWOB, on RA Abdomen: soft, incarcerated ventral hernia, diastasis, TTP near hernia Extremities: Moves all, normal inspection Psych: Normal affect, normal mood, normal judgment Assessment and Plan Assessment and plan (1) Incarcerated ventral hernia: Code(s): K43.6 - Other and unspecified ventral hernia with obstruction, without gangrene Status: Acute Assessment and Plan: - CTAP on 11/06 showing fat containing ventral hernia with 2.5 cm epigastric diastasis. I discussed the risks, benefits, and alternatives of proceeding with robotic assisted laparoscopic eTEP ventral hernia repair with the patient. Specific risks include infection, bleeding, injury to nearby structures, conversion to open procedure, and the risk of postoperative seroma or hematoma. All questions were answered and informed consent was obtained. - Proceed with RAL eTEP ventral hernia repair today A&P discussed with Dr. Anderson (2) Diastasis of rectus abdominis: Code(s): M62.08 - Separation of muscle (nontraumatic), other site Status: Acute Assessment and Plan: - Repair with RAL eTEP today
--- NOTE | 2024-12-17 11:46 | WPDHPUPDATE1 ---
History and Physical Update Update Date/Time: 12/17/24 11:46 History and Physical has been reviewed, including an updated exam of the patient. There are NO changes in the patient's condition. Risks, benefits, and alternatives have been discussed and questions answered. Patient agrees to proceed with procedure.
[2024-12-17] MEDS: ceFAZolin 2 GM in SODIUM CHLORIDE 0.9% IV 50 ML 100 ML IVPB (12:23)
[2024-12-17] MEDS: LIDO 1%/EPINEPHRINE 1:100,000 50 ML VIAL (13:09)
[2024-12-17] MEDS: BUPivacaine HCL 0.5% 10 ML AMP 30 ML INFILTRATE (13:10)
[2024-12-17] MEDS: fentaNYL CITRATE INJ (*CRX) 100 MCG/2 ML VIAL 25 MCG IV PUSH ×4 (15:55→17:00)
--- NOTE | 2024-12-17 16:00 | P.OPB_ITS ---
Procedure Note - Brief Procedure Note - Brief Date of procedure: 12/17/24 Incarcerated Ventral Hernia 3.5 cm Post-op diagnosis: Same Procedure performed: Robotic assisted laparoscopic incarcerated ventral extended totally extraperitoneal (eTEP) hernia repair with Phasix bioabsorbable mesh, bilateral rectus myofascial release. Surgeon: Toy Anderson MD [place] Lay Up Operator: Semaj Washington DO Anesthesia: GETA Implants: Phasix bioabsorbable mesh [id number] placed in retrorectus plane. Estimated blood loss (mL): 40 Drains: Yes ( 15 Fr YANG drain retrorectus space.) Packing: No Pathology: None sent Complications: No immediate complications Condition: Stable Disposition: PACU
[2024-12-17] MEDS: oxyCODONE HCL (*CRX) 5 MG TAB IR PO (17:47)
[2024-12-17] MEDS: ONDANSETRON INJ 4 MG/2 ML VIAL IV PUSH (18:12)
--- NOTE | 2024-12-17 18:25 | SUR.PHASEII ---
1825: SPOUSE, PAT, RETURNED DEMONSTRATION WITH EMPTYING YANG DRAIN. ALL QUESTIONS REGARDING DRAIN CARE AND MANAGEMENT ANSWERED AT THIS TIME BY THIS RN. PATIENT AND FAMILY VERBALIZED UNDERSTANDING; NO FURTHER QUESTIONS AT THIS TIME.
--- NOTE | 2024-12-17 19:05 | SUR.PHASEII ---
THIS RN NOTIFIED DR HOLT THAT [facility] LISTED IS CLOSED. RN REQUESTING ZOFRAN TO BE SENT WELL PER FAMILY AND PATIENT REQUEST. DR HOLT STATED HE WOULD SWITCH PHARMACY FOR PAIN MEDICATION AND ADD ZOFRAN IN ABOUT 10-15 MINUTES. FAMILY AND PATIENT UPDATED ON PLAN. SPOUSE, DAUGHTER, AND SON PRESENT AT THIS TIME.
--- NOTE | 2024-12-18 19:01 | P.OP_ITS ---
Procedure Note - Detailed Date of Procedure 12/18/24 Pre-op Diagnosis Incarcerated Ventral Hernia (3.5 cm) with associated epigastric abdominal diastasis Post-op Diagnosis Same Procedure Performed Robotic assisted laparoscopic incarcerated ventral hernia extended totally extraperitoneal (eTEP) hernia repair with Phasix bio absorbable mesh Bilateral myofascial release. Surgeon Toy Anderson MD Factory Helper Semaj Washington DO, Fabrice HASTINGS Anesthesia General Indications Patient is a 84-year-old gentleman presented with a slowly enlarging mid supraumbilical bulge was an associated epigastric abdominal wall diastasis. The hernia was incarcerated but not painful. CT scan showed a 3.5cm defect through which intra-abdominal omentum was protruding into the hernia sac. There is no bowel involvement. Associated with the hernia sac in the epigastric region the abdomen was a moderate abdominal wall diastasis extending from the hernia defect to the xiphoid process. Findings The hernia defect measured 3.5cm. It was located just above the umbilicus. Inside the hernia sac was large portion of omentum. No bowel was involved. A moderate epigastric abdominal wall diastasis was also noted extending from the hernia defect all the way to the xiphoid process. Description of Procedure After informed consent was obtained patient was brought to the operating room was placed supine position and general endotracheal anesthesia was administered. A Navarro catheter was placed decompress the bladder. The abdomen was then prepped and draped usual sterile fashion. A time-out was then performed correctly identifying the patient and procedure to be performed. He was given perioperative IV antibiotics. I then accessed the left retrorectus space by placing a 5mm Optiview port just at the left costal margin. Direct visualization laparoscopic was advanced through the anterior rectus fascia once I got to the muscle fibers of the left rectus muscle the angle of the trocar was flattened until identified the posterior rectus fascia. With insufflation the retrorectus space I then bluntly dissected with the laparoscoped dividing the area where tissue in the space to the linea alba. Once I had enough tissue dissected I then placed 2 8mm robotic trocar ports under direct visualization into the retrorectus space. The 5mm Optiview port was then switched over to an 8mm robotic port and then a 12mm bedside funeral home assistant trocar port was placed in the left upper quadrant. The [employer] robot was then brought to the patient's bedside and docked to the right side of the abdomen. The robotic ports were then docked to the robotic arms. I then scrubbed out the procedure sent down at the [employer] robotic console to perform the dissection. As the patient had a 3.5cm supraumbilical hernia with associated moderate diastasis in the epigastric region I proceeded to repair this with a myofascial release bilaterally. With robotic dissection I was able to release the muscle fibers of the left rectus muscle from the posterior rectus fascia laterally out to the semi lunar line. Inferiorly I dissected down to the left inguinal region leaving the left inferior epigastric vessels up associated with the muscle fibers. Cephalad I dissected all the way up to the xiphoid process. Once I had the whole left retrorectus space dissected I then performed my crossover maneuver at the level of the falciform ligament fat pad. I incised the medial edge of the left posterior rectus sheath about a cm away from the linea alba. I then dissected in the preperitoneal plane taking care not to disrupt the linea alba until I reached the posterior rectus sheath on the contralateral right side. In order to continue the repair and improve the medialization of the anterior rectus sheath for the purpose of reconstruction of linea alba, I then released the right rectus muscle. I incised the posterior rectus sheath on the right side exposing the right rectus muscle fibers. I then continued to divide the posterior rectus sheath on the right side all the way down to the hernia defect in the supraumbilical region. I dissected the posterior rectus sheath away from the muscle fibers laterally out to the neurovascular bundles and perforators to the right rectus muscle. Cephalad I divided the posterior rectus sheath on the right side at so this xiphoid process. I then proceeded to dissect out the hernia sac and its contents. I divided the fascia and dissect the hernia sac out of the subcutaneous tissues. There was a small hole made in the hernia sac with the dissection and looking through this hole into hernia sac it is the only viable omentum. The hernia sac was completely dissected out of the subcutaneous tissues and the defect was just above the umbilicus. I measured the defect and it was 3.5cm in greatest diameter. I then continued division of the posterior rectus sheath bilaterally and down into the pelvis past the arcuate line. I dissected all way down to the pubic symphysis but not down into the space of Retzius. The right side I again dissected the transversalis fascia off of the inferior epigastric vessels. The medial umbilical ligament fat pad was dissected away from the midline. At this point I had the bilateral myofascial release of the posterior rectus sheath. This allowed medialization of the bilateral rectus muscles so that I could restore the linea alba and its function. I then closed the small defect in the hernia sac utilizing a running 2-0 absorbable V lock suture. I then proceeded to close the defect in the midline abdominal wall utilizing a running nonabsorbable 0V lock suture. After the hernia defect was closed with imbrication of the hernia sac I continued to run the suture in a horizontal mattress fashion imbricating the midline epigastric diastasis until the edges of the rectus muscle were approximated the midline. This continued all the way up to the xiphoid process. At this point I then measured the dissected retrorectus space and I felt that a piece of Phasix bioabsorbable mesh measuring [id number] would be appropriate coverage and this dissected space. The piece of mesh was opened and then the corners were rounded cutting away the corners of the mesh. The mesh was then placed into the abdomen through the 12mm bedside funeral home assistant trocar port site and then spread out on top of the posterior rectus sheath to cover the whole dissected space. The mesh laid out very nicely with wide overlap of at least 5cm of overlap with the closed defect and the epigastric diastasis repair. The mesh was not secured any sutures in the retrorectus space. I then placed Paulina topical hemostatic agent into the retrorectus space on top of the mesh. A 15 Irish round Sriram drain was then placed into the retrorectus space and brought out through the left lower quadrant robotic trocar port site. The drain was secured at the skin level with a 3-0 nylon suture. I then proceeded to remove all the trocar ports under direct visualization all the port sites appeared hemostatic. As retrorectus space was decompressed I visualized the mesh and made sure that remain flat into all the trocars and laparoscopic was removed. I then proceeded irrigated all the port sites sterile saline solution. Hemostasis was excellent. The 12mm trocar port fascial defect on the anterior rectus sheath was then closed utilizing a 0 Vicryl suture. The skin edges in all the port sites were then approximated utilizing a running subcuticular 4-0 Monocryl suture. The incisions were then cleaned the skin glue was applied. Abdominal binder was placed. The patient tolerated the procedure well no complications. All sponges, needles, and instrument counts were correct at the end procedure. EBL was _40__cc. The patient was awakened and taken to recovery in stable and satisfactory condition. Implants Phasix bioabsorbable mesh [id number] place an retrorectus space after bilateral myofascial release Estimated Blood Loss 40 Drains Yes (15 Irish Sriram drain x1 retrorectus space) Packing No Pathology None sent Complications No immediate complications Condition Stable Disposition PACU [facility] Billing Surgery - Charge Forward: Surgery Billing
== END 2024-12-17 19:10 | disposition home or self-care (01) ==
PROVIDERS: PCP Family Medicine; Visit Provider Surgery
PROC: (CPT 49594; principal; 2024-12-17 12:00)
DX: K43.6 Other and unspecified ventral hernia with obstruction, without gangrene (principal); M62.08 Separation of muscle (nontraumatic), other site
CPT/HCPCS: 49594; 49329; S2900; J0690; A9270; J1885; J2004; J2405; J3010; J7030; J7120